=== PATIENT | female | born 1950 | race Caucasian/White ===

== ENCOUNTER → 2016-12-08 | Outpatient (CLI) | payer OTHER ==
[2016-12-08 09:36] LABS: BASO % 0.4 % (0.0-1.0); EOS % 0.2 % (1.0-4.0); HEMATOCRIT 37.4 % (37.0-47.0); HEMOGLOBIN 11.7 g/dl (12.0-16.0); LYMPH # 1.1 10*3/uL (1.3-4.4); LYMPH % 10.9 % (27.0-41.0); MEAN CELL VOLUME 85.8 fl (81.0-99.0); MEAN CORPUSCULAR HGB 26.8 pg (27.0-31.0); MEAN CORPUSCULAR HGB CONC 31.3 g/dl (33.0-37.0); MEAN PLATELET VOLUME 10.3 fl (9.6-12.3); MONO # 0.7 10*3/uL (0.1-1.0); NEUT # 8.3 10*3/uL (2.3-7.9); NEUT % 81.1 % (47.0-73.0); PLATELET COUNT AUTOMATED 118 10*3/uL (130-400); RED BLOOD COUNT 4.36 10*6/uL (4.10-5.10); RED CELL DISTRI WIDTH 17.7 % (0-14.5); WHITE BLOOD COUNT 10.2 10*3/uL (4.8-10.8)
[2016-12-08 10:11] LABS: ALBUMIN 3.1 gm/dl (3.1-4.5); ALKALINE PHOSPHATASE 158 U/L (45-117); BILIRUBIN, DIRECT 0.2 mg/dL (0.0-0.2); BUN 8 mg/dl (7-24); CHLORIDE 109 mmol/L (98-107); CHOLESTEROL 135 mg/dL (<200); CREATININE 0.65 mg/dL (0.55-1.02); HDL CHOLESTEROL 60 mg/dl (40-60); LDL CHOLESTEROL 62 mg/dL (9-159); SGOT/AST 31 IU/L (3-35); SGPT/ALT 25 U/L (12-78); SODIUM 143 mmol/L (136-145); TOTAL PROTEIN 8.5 gm/dL (6.4-8.2); TRIGLYCERIDES 64 mg/dl (<150); VLDL CHOLESTEROL 13 mg/dL (6-40)
== END | disposition home or self-care (01) ==
LOC: LAB 09:04
PROVIDERS: Family Medicine
DX: E78.4 Other hyperlipidemia (principal); R73.01 Impaired fasting glucose; D51.3 Other dietary vitamin B12 deficiency anemia; E55.9 Vitamin D deficiency, unspecified; D69.6 Thrombocytopenia, unspecified

== ENCOUNTER → 2017-08-20 | Outpatient (CLI) | payer OTHER ==
[2017-08-20 13:28] LABS: BUN 8 mg/dl (7-24); CHLORIDE 109 mmol/L (98-107); POTASSIUM 3.3 mmol/L (3.5-5.1); SODIUM 142 mmol/L (136-145)
== END | disposition home or self-care (01) ==
LOC: LAB 12:34
PROVIDERS: Internal Medicine
DX: K74.69 Other cirrhosis of liver (principal)

== ENCOUNTER 2017-12-31 15:45 | Inpatient (IN) | payer OTHER ==
[~2017-12-31] VITALS: Ht 157 cm; Wt 56.3 kg
--- NOTE | ~2017-12-31 | EKG ---
[place], [place] ELECTROCARDIOGRAM REPORT NAME: WING GUNDERSON UNIT #: [id number] ROOM: 407 DOCTOR: IVELISSE DRAFT REPORT BIRTHDATE: [birth year] [facility] Test Date: 2017-12-31 Test Time: 16:22:35 Pat Name: WING GUNDERSON Department: ER Room: [facility] Gender: F Meat Se[employer] Associate: Muriel Goode : 1950 Requested By: AC OMALLEY Order Number: [id number] Reading MD: Anna Jarrett MD Measurements Intervals [place] Rate: 79 P: 57 NM: 177 QRS: 14 QRSD: 77 T: 37 QT: 408 QTc: 468 Interpretive Statements Sinus rhythm Probable left atrial enlargement Electronically Signed On 01-01-2018 12:11:39 PDT by Anna Jarrett MD CM:EKGRPT:ELECTROCARDIOGRAM REPORT 1622 1211 AC CRUZ DRAFT REPORT AC OMALLEY DO
--- NOTE | ~2017-12-31 | CON ---
[place], [place] REPORT OF CONSULTATION NAME: [facility]UNDERSON [facility] [id number] UNIT #: [id number] ROOM: 407 DOCTOR: LAUREN LEWIS MD BIRTHDATE: [birth year] DOS: 01/01/2018 HISTORY OF PRESENT ILLNESS: A 67-year-old patient who presented with hepatic encephalopathy. The patient with a history of DOTSON, history of Crohn's disease years of mesalamine therapy and Humira therapy and perhaps sulfasalazine therapy. The status post multiple times segmental resection of small bowel with Crohn's involvement many years ago. She has had a panel of blood work done. GFR greater than 60. Electrolytes borderline normal, bilirubin 3.9. SGOT, GPT 46 and 34, alkaline phosphatase 150. Lipase 204. C-reactive protein slightly elevated. Lactic acid 1.7. Serum ammonia 56. CT scan of the head was obtained. No acute intracranial finding. CBC differential reveals H and H of 13 and 41 with thrombocytopenia. Ultrasound of the abdomen has been obtained, cirrhotic liver, portal hypertension and cholelithiasis along with ascitic fluid. All has been known. Urine cultures negative. PAST MEDICAL HISTORY: Associated with Crohn's disease, cirrhotic liver, portal hypertension, thrombocytopenia, esophageal varicosities. All is known. PAST SURGICAL HISTORY: Multiple small bowel resections. FAMILY HISTORY: Noncontributory. ALLERGIES: No known medications. MEDICATIONS: List was reviewed. She is on Xifaxan 550 mg b.i.d. She does not like to take lactulose because of the diarrhea; however, was advised to at least consider one dose per day instead of multiple. REVIEW OF SYSTEMS: HEENT: Denies double vision, blurred vision. RESPIRATORY: Denies shortness of breath. CARDIOVASCULAR: Denies chest pain. DIGESTIVE SYSTEM: As outlined above. Cirrhotic liver sequela of the above. PHYSICAL EXAMINATION: GENERAL: Reveals pleasant, fully alert at the present time. HEENT: Head normocephalic, nontraumatic. Eyes: Pupils round, reactive. Sclerae icteric. Mouth and buccal mucosa benign. No aphthae ulceration. NECK: Supple, no thyromegaly, no cervical lymphadenopathy. CHEST: Symmetric anatomy, equal expansion. No wheeze, no rhonchi. HEART: Normal sinus rhythm, no gallop, no murmur. ABDOMEN: Slightly large with some distention secondary most likely to ascites fluid. Bowel sounds present. EXTREMITIES: No cyanosis, no pedal edema. NEUROLOGIC: Fully alert, oriented to time, place, person. Sensory, motor intact. Cranial nerves 2-12 intact. Family present at the bedside and she is participating in history of illness information. IMPRESSION: Cirrhosis, DOTSON etiology and sequela of the above. Thrombocytopenia, ascites, portal hypertension, esophageal varicosities, [place], [place] REPORT OF CONSULTATION NAME: WING GUNDERSON UNIT #: [id number] ROOM: 407 DOCTOR: LAUREN LEWIS MD BIRTHDATE: [birth year] encephalopathy and hyperammonemia. PLAN AND DISCUSSION: The patient already on beta yolanda. We are going to continue with Xifaxan 550 mg b.i.d. and she was convinced at least to have a dose of 30 grams of lactulose daily. Since she was refusing, she was encouraged to take the medication and encephalopathy is stable now and she is having appointment at [facility] to follow up and encouraged to do so. Other adjunctive diagnosis Crohn's disease. She does not have active diarrhea problem. At the present time, she has been on Humira. Humira has been stopped few months ago by her rivet tester because she has had some fibrotic changes and they wanted to make sure it is not secondary to biologic. LAUREN LEWIS MD CM:CONSTR:REPORT OF CONSULTATION 1731 01/20/18 0706 interface
[2017-12-31 15:50] VITALS: BP 171/62
[2017-12-31 16:29] LABS: BILIRUBIN NEGATIVE (NEGATIVE); BLOOD 1+ (NEGATIVE); CLARITY CLEAR (CLEAR); COLOR YELLOW (YELLOW); GLUCOSE NEGATIVE (NEGATIVE); KETONE NEGATIVE (NEGATIVE); LEUKO ESTERASE NEGATIVE (NEGATIVE); NITRITE NEGATIVE (NEGATIVE); SPECIFIC GRAVITY <= 1.005 (1.005-1.030); UROBILINOGEN 0.2 E.U./dl (0.2-1.0)
[2017-12-31 16:49] LABS: BACTERIA TRACE; EPITHELIAL CELLS 35-40; WBC 0-2 wbc/hpf (0-5)
[2017-12-31 17:01] LABS: BASO % 0.4 % (0.0-1.0); EOS # 0.1 10*3/uL (0.0-0.4); EOS % 1.2 % (1.0-4.0); HEMATOCRIT 47.2 % (37.0-47.0); LYMPH % 12.5 % (27.0-41.0); MEAN CELL VOLUME 97.3 fl (81.0-99.0); MEAN CORPUSCULAR HGB CONC 33.9 g/dl (33.0-37.0); MEAN PLATELET VOLUME 11.1 fl (9.6-12.3); MONO # 0.9 10*3/uL (0.1-1.0); MONO % 10.7 % (3.0-9.0); NEUT # 6.2 10*3/uL (2.3-7.9); NEUT % 75.1 % (47.0-73.0); PLATELET COUNT AUTOMATED 77 10*3/uL (130-400); RED BLOOD COUNT 4.85 10*6/uL (4.10-5.10); RED CELL DISTRI WIDTH 15.9 % (0-14.5); WHITE BLOOD COUNT 8.2 10*3/uL (4.8-10.8)
[2017-12-31 17:10] LABS: ACT PARTIAL THROMBO TIME 30.5 SECONDS (20.8-31.5); INTERNATIONAL NORM RATIO 1.6 (2.0-3.5)
[2017-12-31 17:16] LABS: IRON 155 ug/dL (50-170); TOTAL IRON BINDING CAPACITY 416 ug/dl (250-450)
[2017-12-31 17:21] LABS: ALBUMIN 2.9 gm/dl (3.1-4.5); ALKALINE PHOSPHATASE 150 U/L (45-117); BUN 10 mg/dl (7-24); CHLORIDE 109 mmol/L (98-107); CREATININE 0.58 mg/dL (0.55-1.02); LIPASE 204 U/L (73-393); POTASSIUM 3.4 mmol/L (3.5-5.1); SGOT/AST 46 IU/L (3-35); SGPT/ALT 34 U/L (12-78); SODIUM 142 mmol/L (136-145); TOTAL PROTEIN 8.5 gm/dL (6.4-8.2); TROPONIN I 0.021 ng/ml (<0.045)
[2017-12-31 18:12] VITALS: BP 152/64
[2017-12-31 19:02] VITALS: BP 159/65
[2017-12-31 19:22] VITALS: BP 157/68
[2017-12-31 20:04] VITALS: BP 151/63
[2017-12-31 20:30] VITALS: BP 157/56; BP 159/65
[2017-12-31] MEDS ORDERED: FLOVENT HFA12 GM INH (20:50)
[2017-12-31] MEDS ORDERED: XIFAXAN550 MG PO (20:50)
[2017-12-31] MEDS ORDERED: ALDACTONE25 M1 PO (20:51)
[2017-12-31] MEDS ORDERED: NADOLOL20 MG PO (20:51)
[2017-12-31] MEDS ORDERED: VITAMIN D-32000 UNI1 PO (20:52)
[2017-12-31] MEDS ORDERED: PRILOSEC20 M1 PO (20:52)
[2017-12-31] MEDS ORDERED: B121000 MCG/1 IM (20:54)
[2017-12-31] MEDS ORDERED: TRAMADOL HCL50 MG PO (20:54)
[2017-12-31] MEDS ORDERED: CONSTULOSE10 GM/151 PO (20:56)
[2017-12-31] MEDS ORDERED: ARNUITY ELLIP200 MCG INH (20:56)
[2017-12-31] MEDS ORDERED: CONDYLOX3.5 GM T (20:59)
[2017-12-31] MEDS ORDERED: RETIN A T (21:01)
[2018-01-01] VITALS: BP 145/54
[2018-01-01 06:07] LABS: ALBUMIN 2.2 gm/dl (3.1-4.5); ALKALINE PHOSPHATASE 113 U/L (45-117); BILIRUBIN, DIRECT 1.1 mg/dL (0.0-0.2); BUN 10 mg/dl (7-24); CHLORIDE 112 mmol/L (98-107); CHOLESTEROL 90 mg/dL (<200); CREATININE 0.53 mg/dL (0.55-1.02); FREE T4 1.58 ng/dl (0.76-1.46); HDL CHOLESTEROL 38 mg/dl (40-60); LDL CHOLESTEROL 39 mg/dL (9-159); PHOSPHOROUS 4.2 mg/dL (2.5-4.9); POTASSIUM 3.8 mmol/L (3.5-5.1); SGOT/AST 39 IU/L (3-35); SGPT/ALT 28 U/L (12-78); SODIUM 145 mmol/L (136-145); TOTAL PROTEIN 6.7 gm/dL (6.4-8.2); TRIGLYCERIDES 66 mg/dl (<150); VLDL CHOLESTEROL 13 mg/dL (6-40)
[2018-01-01 06:34] LABS: BASO % 0.6 % (0.0-1.0); EOS # 0.2 10*3/uL (0.0-0.4); EOS % 2.4 % (1.0-4.0); HEMATOCRIT 41.6 % (37.0-47.0); LYMPH # 1.4 10*3/uL (1.3-4.4); LYMPH % 20.1 % (27.0-41.0); MEAN CELL VOLUME 97.7 fl (81.0-99.0); MEAN CORPUSCULAR HGB 32.4 pg (27.0-31.0); MEAN CORPUSCULAR HGB CONC 33.2 g/dl (33.0-37.0); MEAN PLATELET VOLUME 11.1 fl (9.6-12.3); MONO # 0.9 10*3/uL (0.1-1.0); MONO % 12.7 % (3.0-9.0); NEUT # 4.5 10*3/uL (2.3-7.9); NEUT % 64.1 % (47.0-73.0); PLATELET COUNT AUTOMATED 67 10*3/uL (130-400); RED BLOOD COUNT 4.26 10*6/uL (4.10-5.10); RED CELL DISTRI WIDTH 15.9 % (0-14.5)
[2018-01-01 06:44] LABS: HEMOGLOBIN 13.8 g/dl (12.0-16.0)
[2018-01-01 08:00] VITALS: BP 140/50
[2018-01-01 12:00] VITALS: BP 135/45
[2018-01-01 16:00] VITALS: BP 130/91
[2018-01-01 20:00] VITALS: BP 136/52
[2018-01-02] VITALS: BP 123/44
[2018-01-02 05:57] LABS: BASO % 0.6 % (0.0-1.0); EOS # 0.2 10*3/uL (0.0-0.4); HEMATOCRIT 38.6 % (37.0-47.0); HEMOGLOBIN 12.7 g/dl (12.0-16.0); LYMPH # 1.3 10*3/uL (1.3-4.4); LYMPH % 19.2 % (27.0-41.0); MEAN CELL VOLUME 98.2 fl (81.0-99.0); MEAN CORPUSCULAR HGB 32.3 pg (27.0-31.0); MEAN CORPUSCULAR HGB CONC 32.9 g/dl (33.0-37.0); MEAN PLATELET VOLUME 11.1 fl (9.6-12.3); MONO % 14.8 % (3.0-9.0); NEUT # 4.2 10*3/uL (2.3-7.9); NEUT % 62.3 % (47.0-73.0); PLATELET COUNT AUTOMATED 60 10*3/uL (130-400); RED BLOOD COUNT 3.93 10*6/uL (4.10-5.10); RED CELL DISTRI WIDTH 15.9 % (0-14.5); WHITE BLOOD COUNT 6.7 10*3/uL (4.8-10.8)
[2018-01-02 06:08] LABS: BUN 9 mg/dl (7-24); CHLORIDE 109 mmol/L (98-107); CREATININE 0.55 mg/dL (0.55-1.02); SODIUM 140 mmol/L (136-145)
[2018-01-02 08:00] VITALS: BP 102/44
[2018-01-02 12:00] VITALS: BP 123/46
[2018-01-02 16:00] VITALS: BP 132/43
[2018-01-02 20:00] VITALS: BP 133/48
[2018-01-03] VITALS: BP 124/50
[2018-01-03 06:45] LABS: BASO # 0.1 10*3/uL (0.0-0.1); BASO % 0.6 % (0.0-1.0); EOS # 0.3 10*3/uL (0.0-0.4); EOS % 3.5 % (1.0-4.0); HEMATOCRIT 38.7 % (37.0-47.0); HEMOGLOBIN 12.8 g/dl (12.0-16.0); LYMPH # 1.3 10*3/uL (1.3-4.4); LYMPH % 16.5 % (27.0-41.0); MEAN CELL VOLUME 98.2 fl (81.0-99.0); MEAN CORPUSCULAR HGB 32.5 pg (27.0-31.0); MEAN CORPUSCULAR HGB CONC 33.1 g/dl (33.0-37.0); MEAN PLATELET VOLUME 11.5 fl (9.6-12.3); MONO # 1.1 10*3/uL (0.1-1.0); MONO % 13.4 % (3.0-9.0); NEUT # 5.3 10*3/uL (2.3-7.9); NEUT % 65.8 % (47.0-73.0); PLATELET COUNT AUTOMATED 61 10*3/uL (130-400); RED BLOOD COUNT 3.94 10*6/uL (4.10-5.10); RED CELL DISTRI WIDTH 15.4 % (0-14.5); WHITE BLOOD COUNT 8.1 10*3/uL (4.8-10.8)
[2018-01-03 07:10] LABS: BUN 8 mg/dl (7-24); CHLORIDE 108 mmol/L (98-107); CREATININE 0.51 mg/dL (0.55-1.02); POTASSIUM 3.8 mmol/L (3.5-5.1); SODIUM 139 mmol/L (136-145)
[2018-01-03 08:00] VITALS: BP 115/45
[2018-01-03] MEDS ORDERED: LACTULOSE20 GM/30 M PO (09:09)
[2018-01-03 12:00] VITALS: BP 132/47
== END 2018-01-03 14:00 | disposition home or self-care (01) | DRG 441 ==
LOC: ED 15:45 → 4E 18:35 → EDHOLD 18:35 → 4E 18:49
PROVIDERS: Emergency Medicine; Internal Medicine; Internal Medicine Nephrology
DX: K72.90 Hepatic failure, unspecified without coma (principal); G93.41 Metabolic encephalopathy; E87.2 Acidosis; R65.10 Systemic inflammatory response syndrome (SIRS) of non-infectious origin without acute organ dysfunction; E44.0 Moderate protein-calorie malnutrition; K50.919 Crohn's disease, unspecified, with unspecified complications; E72.20 Disorder of urea cycle metabolism, unspecified; R18.8 Other ascites; K76.6 Portal hypertension; I85.10 Secondary esophageal varices without bleeding; K80.20 Calculus of gallbladder without cholecystitis without obstruction; K75.81 Nonalcoholic steatohepatitis (NASH); D69.6 Thrombocytopenia, unspecified; E87.6 Hypokalemia; E87.8 Other disorders of electrolyte and fluid balance, not elsewhere classified; K71.7 Toxic liver disease with fibrosis and cirrhosis of liver; D72.810 Lymphocytopenia; R73.9 Hyperglycemia, unspecified; R74.0 Nonspecific elevation of levels of transaminase and lactic acid dehydrogenase [LDH]; E67.8 Other specified hyperalimentation; E88.09 Other disorders of plasma-protein metabolism, not elsewhere classified; E55.9 Vitamin D deficiency, unspecified; Z80.1 Family history of malignant neoplasm of trachea, bronchus and lung; Z79.899 Other long term (current) drug therapy; Z68.22 Body mass index [BMI] 22.0-22.9, adult

== ENCOUNTER → 2018-01-08 | Outpatient (CLI) | payer OTHER ==
[~2018-01-08] MED LIST: ALDACTONE25 M1 PO; ARNUITY ELLIP200 MCG INH; B121000 MCG/1 IM; CONDYLOX3.5 GM T; CONSTULOSE10 GM/151 PO; FLOVENT HFA12 GM INH; LACTULOSE20 GM/30 M PO; NADOLOL20 MG PO; PRILOSEC20 M1 PO; RETIN A T; TRAMADOL HCL50 MG PO; VITAMIN D-32000 UNI1 PO; XIFAXAN550 MG PO
[2018-01-08 12:14] LABS: ALBUMIN 2.6 gm/dl (3.1-4.5); ALKALINE PHOSPHATASE 145 U/L (45-117); BUN 8 mg/dl (7-24); CHLORIDE 107 mmol/L (98-107); CREATININE 0.63 mg/dL (0.55-1.02); GAMMA GLUTAMYL TRANSPEPTIDASE 126 U/L (5-55); POTASSIUM 3.2 mmol/L (3.5-5.1); SGOT/AST 48 IU/L (3-35); SGPT/ALT 36 U/L (12-78); SODIUM 141 mmol/L (136-145); TOTAL PROTEIN 7.2 gm/dL (6.4-8.2)
== END | disposition home or self-care (01) ==
LOC: LAB 11:13
PROVIDERS: Internal Medicine
DX: K74.69 Other cirrhosis of liver (principal); K50.018 Crohn's disease of small intestine with other complication

== ENCOUNTER 2018-07-30 16:31 | Inpatient (IN) | payer OTHER ==
[~2018-07-30] VITALS: Ht 157.5 cm; Wt 57.8 kg
--- NOTE | ~2018-07-30 | CON ---
[place], [place] REPORT OF CONSULTATION NAME: WING GUNDERSON [facility] #: [id number] UNIT #: [id number] ROOM: 421 DOCTOR: ИРИНА BEVERLY MDIVA BIRTHDATE: [birth year] DOS: 08/03/2018 PULMONARY CONSULTATION, EVALUATION AND BEHAVIORIST PHYSICIAN: Hospitalist services. REASON FOR CONSULTATION: To assess the patient for the current acute respiratory failure. HISTORY OF PRESENT ILLNESS: The patient was independently seen and examined with [id number] encounter, history was confirmed. Physical examination performed. The labs was reviewed. Note done by the biomedical engineering professor, was approved. This is a 68-year-old white female patient, complex history, most likely related to the GI tract, the patient has been also under the care of hospitalist service on the date of 07/30/2018. The patient's original symptoms are noted on admission was reported as general weakness and fatigue for this patient. The patient was not noted with any symptoms of coughing, chest pain or hemoptysis. The patient has been noted with hepatic insufficiency for this patient with elevation of ammonia level, metabolic in origin, hyperemia as well treated on medical floor. The patient was noted with normal pulse oxygen saturation, later on developed prior to admission to Intensive Care Unit with severe oxygen desaturation of the patient requiring 100% oxygen supplementation, I am not able to manage. Pulse oxygen saturation normal. The patient was started on the BiPAP, the discussion about the code status has been done between the patient and family member of the patient, final decision essentially was achieved for this patient as DNR comfort care by the patient as a final decision and the patient's no intubation. She was placed on the BiPAP on 70% oxygen and later on switched to the Optiflow oxygen supplementation. The patient was assessed this morning. REVIEW OF SYSTEMS: As done by the biomedical engineering professor, was approved. PAST MEDICAL HISTORY: Noted history of: 1. Crohn's disease, longstanding. 2. Liver cirrhosis, primary biliary cirrhosis, most likely is the reason. Again, I am not sure about the exact diagnosis as the pathological report none available. 3. Esophageal varices. 4. History of interstitial lung disease, the patient stated as well. 5. History of portal hypertension. 6. Protein-calorie malnutrition as well. SOCIAL HISTORY: As stated by the patient. She denies any tobacco, alcohol or illicit drug use. She lives at home. PAST SURGICAL HISTORY: Noted: 1. Partial colectomy, which were done twice in 1976 and 1986. 2. Banding of the esophageal varices. FAMILY HISTORY: The patient's father at the age of 80 years of [place], [place] REPORT OF CONSULTATION [id number] UNIT #: [id number] ROOM: 421 DOCTOR: EDGAR GOMEZ MDM BIRTHDATE: [birth year] complication of lung cancer. Mother at the age of 86 of complication related to diabetes mellitus. HOME MEDICATIONS: Listed as: 1. Xifaxan, which is rifaximin. 2. Nadolol. 3. Vitamin D. 4. Omeprazole. 5. Tramadol. 6. Aldactone. 7. Vitamin B12. 8. Lactulose. 9. Potassium chloride. 10. B complex, folic acid. 11. Flovent inhaler. CURRENT MEDICATIONS: Current medications, which were administered on this hospitalization were noted as the use of: 1. Solu-Medrol 40 mg b.i.d., lactulose 20 g daily. 2. Mucinex 1200 mg p.o. b.i.d. 3. DuoNeb q. 6 hours. 4. Fish oil. 5. Multivitamin. 6. Vitamin D. 7. Omeprazole. 8. Aldactone. 9. Metoprolol tartrate. 10. Rifaximin. 11. IV Zosyn. DRUG ALLERGY HISTORY: The patient was noted as no known drug allergies. PHYSICAL EXAMINATION: GENERAL: This is a 68-year-old white female patient who has been currently comfortably resting, on the bed, using oxygen supplementation Optiflow of oxygen. VITAL SIGNS: Height was 5 feet 2 inches, weight 127 pounds, BMI 23. HEENT: Head was atraumatic. The patient's eyes were noted icterus. NECK: Supple. CARDIOVASCULAR SYSTEM: S1, S2 audible. LUNGS: The patient was noted with severe decreased breaths in the lungs bilaterally. There was no wheezing. Scattered crackles of the lung were present. ABDOMEN: Soft, nontender, bowel sounds present. EXTREMITIES: The patient was noted with mild edema. MUSCULOSKELETAL: Without any acute deformities. CENTRAL NERVOUS SYSTEM: No gross focal neurologic deficit at this time. The patient noted awake and alert and able to understand the questions and answer the questions appropriately. [place], [place] REPORT OF CONSULTATION NAME[facility]UNDERSON [id number] UNIT #: [id number] ROOM: 421 DOCTOR: IVA GOMEZ MD BIRTHDATE: [birth year] LABORATORY DATA: CBC that was done for the patient on the 08/02/2018 as WBC count 9.6, hemoglobin 10.8, platelet count 53,000. CMP that was done on 08/02/2018, BUN 13, creatinine was normal, glucose 110. Albumin 1.9, total bilirubin 3.4. Arterial blood gas that was done yesterday, 100% nonrebreather mask, pH of 7.36, pCO2 of 31, pO2 of 65.5. BMP that was done repeated noted with a BUN of 16, creatinine 1.04, glucose 276. CO2 was 17. Chloride 111. Lactic acid was noted for the patient yesterday at 4.5. The troponin is 0.50. CBC repeated again, WBC count 17.4, hemoglobin 10.6, platelet count 56,000. Second troponin is 0.726. The ammonia level noted less than 10, which are noted significantly with more than 100 on admission. CBC that was done this morning lab, WBC count 12.9, hemoglobin 11.5, hematocrit 36.5, platelet count 46,000. CMP this morning was done as BUN 20, creatinine 1.14. Glucose 169. Albumin is 2.0. Total bilirubin 2.30. CO2 level was noted normal as 25. The radiology data reviewed for this patient systematically. The patient has a chest x-ray that was done on admission on 12/31/2017 were noted essentially negative study. CT scan of the patient's head was reported by the radiologist without any acute abnormality on admission as well on 12/31/2017. Ultrasound of the abdomen completed on 01/01/2018 were noted a small amount of ascites. The patient had another ultrasound, which was done for the patient again was noted cirrhotic liver with a small associated ascites. Sludge and stones noted within the gallbladder, likely reactive with gallbladder wall thickening. Chest x-ray that was done for this patient on the 08/01/2018, portable x-ray was reviewed, the patient is still noted without any acute abnormalities. CTA of the chest that was done on 08/02/2018 was reviewed personally. Parenchymal window for the patient was noted with the diffuse ground glass opacity was noted in the lung for this patient, sparing some of the lung parenchyma. Most of the distribution noted as more central. There were no pleural effusions. IMPRESSION: 1. The patient who has been noted with acute pulmonary edema, most likely cause of current deterioration resulting in acute severe hypoxemic respiratory failure. 2. History of known advanced liver cirrhosis, ascites and esophageal varices. 3. Resolution of metabolic encephalopathy noted from admission and normalization of the ammonia level. 4. The patient with recurrent abdominal ascites noted significantly increased since admission in 2 days. Rapid accumulation also suggested possible consideration of Budd-Chiari syndrome as well in the differential diagnosis. 5. Rule out acute peritonitis of the patient with further assessment because of elevation of the temperature. I doubt if the finding noted in the CT scan is suggestive of acute pneumonia. PLAN OF MANAGEMENT: The patient will be requiring paracentesis for cell count and differential and also to relieve the respiratory distress. Continue oxygen supplementation with the Optiflow used as the BiPAP for the comfort. The patient wanted to do so, which could be beneficial. Diuretic therapy for the patient could be given. Antibiotic was started for Gram-negative coverage related to the abdominal problem. Other therapy, plan and management with additional treatment changes will be made for this patient based on progression of the illness. The patient was also noted mildly abnormal troponin at this [place], [place] REPORT OF CONSULTATION NAME: WING GUNDERSON UNIT #: [id number] ROOM: 421 DOCTOR: IVA GOMEZ MD BIRTHDATE: [birth year] time, most likely due to demand ischemia for this patient more than the acute myocardial infarction. Usual care, other therapy, plan of management with additional treatment changes needs to be done for the patient based on the progression of the illness. Supportive care, plan of therapy and management for the patient as well. Close monitoring of electrolytes for the patient while on the diuretics as well. Overall prognosis of the patient is essentially quite guarded. Thanks for allowing me to participate in the care of this patient. IVA GIFFORD MD CM:CONSTR:REPORT OF CONSULTATION 1827 08/30/18 0842 interface
--- NOTE | ~2018-07-30 | EKG ---
[place], [place] ELECTROCARDIOGRAM REPORT NAME: WING GUNDERSON UNIT #: [id number] ROOM: [facility] DOCTOR: IVELISSE DRAFT REPORT BIRTHDATE: [birth year] [facility] Test Date: 2018-08-02 Test Time: 14:25:20 Pat Name: WING GUNDERSON Department: Room: [facility] Gender: F Senior Vice President: Lorene Phillip : 1950 Requested By: GEOFFREY GARCIA Order Number: [id number] Reading MD: Jasmin Keller Measurements Intervals [place] Rate: 105 P: 47 MA: 166 QRS: 29 QRSD: 72 T: 31 QT: 352 QTc: 466 Interpretive Statements Sinus tachycardia Borderline low voltage, extremity leads Compared to ECG 12/31/2017 16:22:35 Sinus rhythm no longer present Electronically Signed On 08-04-2018 13:33:40 PDT by Jasmin Keller CM:EKGRPT:ELECTROCARDIOGRAM REPORT 1425 1333 GEOFFREY GARCIA EPIPHANY DRAFT REPORT GEOFFREY GARCIA
--- NOTE | ~2018-07-30 | PR ---
[place], [place] PROGRESS NOTE [id number] UNIT #: [id number] ROOM: 421 DOCTOR: LEVI FRANCIS DO BIRTHDATE: [birth year] DOS: 08/13/2018 PULMONARY PROGRESS NOTE INTERVAL HISTORY: The patient is resting in bed comfortably. The patient is still requiring the Optiflow. The patient states that her breathing has not changed since last night. The patient has no other complaints. PHYSICAL EXAMINATION: VITAL SIGNS: Temperature is 97.8 and her pulse rate is 108, respiratory rate is 20, blood pressure is 108/45. The patient is 88% on 60 liters, 100% on Optiflow. HEENT: Normocephalic, atraumatic. Eyes are mildly icteric. NECK: Supple, nontender, trachea midline. CARDIOVASCULAR: S1, S2 audible. LUNGS: Some crackles at the bilateral bases. ABDOMEN: Distended, nontender, positive fluid wave. EXTREMITIES: No clubbing, cyanosis. The patient has bilateral lower extremity edema. NEUROLOGIC: The patient is grossly intact. Cranial nerves 2-12 grossly intact. No focal deficits. LABORATORY DATA: Of note, the patient's INR remains elevated at 7.3 despite not being on anticoagulation. The patient's chemistries: Sodium 139, potassium 3.9, chloride 107, carbon dioxide 20, BUN 45, creatinine 1.38. T-bili is 5 today with AST 43, ALT 26, alk phos 125, albumin is 1.8. ASSESSMENT: 1. Advanced liver cirrhosis. 2. History of ulcerative colitis 3. Jaundice. 4. Leukocytosis. 5. Renal failure. 6. Coagulopathy, likely secondary to liver failure. 7. Hypoxic respiratory failure. PLAN: The patient is on Optiflow to continue to oxygenate above 88%. The patient should be continued on Optiflow at this time. The patient is refusing intubation. The patient's condition remains guarded; however, if the patient's family would still like her to be transferred to tertiary care center such as [facility] for further evaluation, it would be okay as long as the patient will be transferred on either BiPAP or Optiflow. Otherwise, the patient remains guarded. Carlos Francis DO [place], [place] PROGRESS NOTE NAME: JALYN,WING Jesus UNIT #: [id number] ROOM: [facility] DOCTOR: LEVI FRANCIS DO BIRTHDATE: [birth year] IVA GIFFORD MD CM:MU [phone] LEVI FRANCIS DO 08/30/18 0857 interface
--- NOTE | ~2018-07-30 | PR ---
[place], [place] PROGRESS NOTE NAME: WING GUNDERSON [facility] #: [id number] UNIT #: [id number] ROOM: 421 DOCTOR: ИРИНА BEVERLY MD,IVA BIRTHDATE: [birth year] DOS: 08/04/2018 PULOMNARY ADDENDUM NOTE SUBJECTIVE: The patient independently was seen, examined in [id number] encounter, history was confirmed. Labs were reviewed. Medical record of the patient was also assessed. After reviewing the labs, the patient assessment and management today was personally completed. The note done by the medical appliance maker was approved as well. The patient has been noted stability in the respiratory status, reduction in symptoms of shortness of breath. She has been started on Lasix yesterday and was noted effective reduction in the respiratory symptom. Denies symptoms of chest pain, fever or chills this morning of assessment. Denies symptoms of hemoptysis. Denies symptoms of nausea, vomiting, or diarrhea. She underwent paracentesis. No abdominal pain. Denies symptoms of pain of the lower extremities. Remaining systems were reviewed. They were noted all negative. PHYSICAL EXAMINATION: VITAL SIGNS: For the patient, which are recorded shows normal temperature, respiratory rate of 18-24. Heart rate 87-85, blood pressure 120/50-132/51. Intake of 1000 mL, output at 2669 on 1.540 liters. Pulse oxygen saturation on 50% oxygen supplementation, was recorded 99-100% saturation. HEENT: Examination shows head was atraumatic. Mild icterus. NECK: Supple. CARDIOVASCULAR: S1, S2 audible. LUNGS: Noted without any wheezing, occasional crackles. ABDOMEN: Soft. No tenderness. Bowel sounds present. EXTREMITIES: Noted with edema. MUSCULOSKELETAL: Without acute deformities. CENTRAL NERVOUS SYSTEM: Limited, but intact. LABORATORY DATA: CBC; WBC count 21.6, hemoglobin 11.2, platelet count 59,000. Blood culture from the 08/02/2018 showed no bacterial growth. The PT/INR was noted elevated at 3.3. BMP done this morning as glucose 213, BUN 20, creatinine 1.09. Troponin minimally elevated at 0.34. Potassium 3.4. CO2 was 20. Gram stain of the sputum yesterday as many white blood cells, moderate epithelial cells, few budding yeast, normal rosanna preliminary growth noted, and no bacterial growth at this time was noted. Final culture results pending. IMPRESSION: 1. The patient with severe acute hypoxic respiratory failure with acute congestive heart failure, interstitial edema. 2. Advanced cirrhosis of the liver with ascites. 3. Portal hypertension secondary cause as the pulmonary hypertension is also reported and noted with liver cirrhosis as well. 4. History of ulcerative colitis. 5. Leukocytosis, rule out sepsis. 6. Rule out spontaneous bacterial peritonitis. 7. Abnormal coagulation related to liver dysfunction. [place], [place] PROGRESS NOTE NAME: WING GUNDERSON UNIT #: [id number] ROOM: [facility] DOCTOR: ИРИНА BEVERLY MD,IVA BIRTHDATE: [birth year] PLAN OF TREATMENT: No changes in the plan of care at this time, current antibiotic: Monitor respiratory status. Start the patient on Lasix 40 mg b.i.d. yesterday will be continued. Reduction of broad-spectrum antibiotic as soon as the culture results will be available. IVA GIFFORD MD CM:PNTRANS [phone] IVA BEVERLY MD 08/05/18 0248 interface
--- NOTE | ~2018-07-30 | PR ---
[place], [place] PROGRESS NOTE NAME: WING GUNDERSON UNIT #: [id number] ROOM: 421 DOCTOR: QIAN GELLERLEVI BIRTHDATE: [birth year] DOS: 08/05/2018 INTERVAL HISTORY: The patient states that her breathing is better today. The patient has discussed palliative care as described yesterday. The patient is still to decide exactly how she wants to go home. The patient continues on BiPAP as needed. The patient denies any chest pain, fevers or chills. OBJECTIVE: VITAL SIGNS: Temperature is 97.7, pulse 77, respiratory rate 20, blood pressure 90/50, 95% on BiPAP with oxygen FiO2 of 70. HEENT: Normocephalic, atraumatic. Eyes are anicteric. NECK: Supple, nontender, trachea midline. HEART: S1, S2 audible. LUNGS: Crackles at right base, diminished bilaterally. ABDOMEN: Soft, nontender, nondistended. EXTREMITIES: Erythema, edema to bilateral lower extremity without rash today. NEUROLOGIC: Grossly intact. Not confused currently. ASSESSMENT: 1. Acute respiratory failure, hypoxia, likely from pulmonary edema. 2. Hypokalemia. 3. Hepatic encephalopathy. 4. Thrombocytopenia. 5. Severe protein-calorie malnutrition. 6. History of Crohn's disease. 7. Hyperbilirubinemia and transaminitis. 8. Cirrhosis secondary to nonalcoholic steatohepatitis with progressive liver failure at this time. 9. Anasarca. PLAN: At this time, the patient is stable from pulmonary standpoint. The patient's shortness of breath with hypoxia is related to pulmonary edema. Continue Aldactone at the home dose. Continue IV Lasix while the patient is inpatient and consider continuing on Lasix when the patient is discharged. The patient will go for a two-view chest x-ray today to assess any pulmonary fluid. Consider narrowing antibiotics based on cultures and any additional changes based on progression of illness. Carlos Francis DO [place], [place] PROGRESS NOTE NAME: WING GUNDERSON UNIT #: [id number] ROOM: 421 DOCTOR: LEVI FRANCIS DO BIRTHDATE: [birth year] IVA GIFFORD MD CM:PNREESE [phone] LEVI FRANCIS DO 08/05/18 2243 interface
--- NOTE | ~2018-07-30 | PR ---
[place], [place] PROGRESS NOTE NAME: WING GUNDERSON [facility] #: [id number] UNIT #: [id number] ROOM: 421 DOCTOR: ИРИНА BEVERLY MD,IVA BIRTHDATE: [birth year] DOS: 08/05/2018 PULMONARY PROGRESS NOTE The patient is independently seen and examined in gbrf-pj-gyvn encounter. History was confirmed. Physical examination performed. Labs were reviewed. Note done by the medical accountant was approved as well. SUBJECTIVE: The patient has been noted comfortable at this time, resting, using oxygen supplementation, Optiflow oxygen. She has not been reported with any symptoms of chest pain or any cough. Shortness of breath is still reported and she is requiring a significant amount of oxygen supplementation. The patient denies symptoms of nausea, vomiting, diarrhea, or any abdominal pain. Denies symptoms of hematemesis or melena. Lasix was continued 40 mg daily and negative fluid balance of about 1100 mL noted in the last 24 hours. Remaining systems were reviewed, noted all negative. OBJECTIVE: VITAL SIGNS: The patient remains afebrile, respiratory rate 16, heart rate 81, blood pressure 114/44. Pulse oxygen saturation recorded as 95% saturation on BiPAP and Optiflow oxygen supplementation. HEENT: Examination shows head is atraumatic. Eyes nonicterus. NECK: Supple. CARDIOVASCULAR: S1 and S2 audible. LUNGS: Noted with expiratory crackles, without any wheezing. ABDOMEN: Soft, nontender. Bowel sounds present. EXTREMITIES: Without any acute edema. MUSCULOSKELETAL: Without any acute deformities. CENTRAL NERVOUS SYSTEM: Intact. LABORATORY DATA: PT/INR that was noted this morning was still noted in the therapeutic range at 2.5. BMP this morning - BUN 19, creatinine normal, glucose 155, chloride 114. Culture of the sputum was reported as heavy growth of yeast, normal rosanna. DIAGNOSTIC DATA: Chest x-ray ordered this morning was noted worsening of previously noted interstitial infiltration. IMPRESSION: 1. The patient with acute congestive heart failure. 2. Bilateral pleural fluid with persistent acute respiratory failure. 3. History of advanced liver cirrhosis. Possible pneumonia cannot be completely excluded. 4. Ascites. PLAN OF MANAGEMENT: Continuation of current plan of management. From a pulmonary standpoint, paracentesis when possible and sampling of the fluid. Lasix to be continued at the present time at the same dose. The patient is also receiving Solu-Medrol which could be discontinued. Other therapy plan of management changes will be made based on progression of the illness. [place], [place] PROGRESS NOTE NAME: WING GUNDERSON UNIT #: [id number] ROOM: [facility] DOCTOR: ИРИНА BEVERLY MD,IVA BIRTHDATE: [birth year] IVA GIFFORD MD CM:PNTRANS [phone] IVA BEVERLY MD 08/30/18 0843 interface
--- NOTE | ~2018-07-30 | PR ---
[place], [place] PROGRESS NOTE [facility] [id number] UNIT #: [id number] ROOM: 421 DOCTOR: QIAN GELLERAMYJUAN FRANCISCO BIRTHDATE: [birth year] DOS: 08/12/2018 PULMONARY PROGRESS NOTE INTERVAL HISTORY: The patient was resting in bed. The patient is on Optiflow. The patient states that she is still short of breath with any activity. The patient states that she has not used the BiPAP overnight. The patient has no other complaints. OBJECTIVE: VITAL SIGNS: Temperature 98.4, pulse 69, respiratory rate 20, blood pressure is 108/38. The patient is 94% on 100% and 60 liters of Optiflow. HEENT: Normocephalic, atraumatic. Eyes are icteric. NECK: Supple, nontender, trachea midline. CARDIOVASCULAR: S1, S2 audible. LUNGS: Some crackles at the bilateral bases. ABDOMEN: Distended, nontender. Positive fluid wave. EXTREMITIES: No clubbing, cyanosis. The patient has trace bilateral lower extremity edema. NEUROLOGIC: The patient is grossly intact. Cranial nerves 2-12 grossly intact. No focal deficits. LABORATORY DATA: The patient's white count today is 19.5, hemoglobin is 11.4, hematocrit is 34.0, platelet count is 86. Chemistries: Sodium 140, potassium 3.8, chloride 108, carbon dioxide 22, BUN 40, creatinine 1.51, calcium 7.6. Coagulation studies again show an elevated INR of 7.4. ASSESSMENT: 1. Advanced liver cirrhosis. 2. History of ulcerative colitis. 3. Jaundice. 4. Leukocytosis. 5. Renal failure. 6. Coagulopathy, most likely secondary to liver dysfunction. 7. Hypoxic respiratory failure. PLAN: The patient is stable at this time on the Optiflow. The patient should be continued on Optiflow as it is the best ventilating strategy for hypoxic respiratory failure at this time. We agree if the patient would like further treatment, she would need to go to a tertiary care center such as the [facility]. The patient's condition remains guarded. Continue current therapies and changes will be based on progression of illness. Carlos Francis DO [place], [place] PROGRESS NOTE NAME: WING GUNDERSON UNIT #: [id number] ROOM: 421 DOCTOR: LEVI FRANCIS DO BIRTHDATE: [birth year] IVA GIFFORD MD CM:PNREESE [phone] LEVI FRANCIS DO 08/12/181911 interface
--- NOTE | ~2018-07-30 | PR ---
[place], [place] PROGRESS NOTE NAME: WING GUNDERSON UNIT #: [id number] ROOM: 421 DOCTOR: LEVI FRANCIS DO BIRTHDATE: [birth year] DOS: 08/10/2018 PULMONARY PROGRESS NOTE SUBJECTIVE: The patient is comfortable, resting in bed. However, the patient still required high flow oxygen with Optiflow. The patient is chronically ill, but not in any acute distress. PHYSICAL EXAMINATION: VITAL SIGNS: The patient's temperature is 99.3, pulse 88, respirations 16, blood pressure 105/40. The patient is 91% on high flow oxygen with the Optiflow. HEENT: Eyes mildly icteric, normocephalic, atraumatic. NECK: Supple, nontender. CARDIOVASCULAR: S1, S2 audible. LUNGS: Decreased breath sounds bilaterally with scattered crackles. ABDOMEN: Bowel sounds present. No tenderness. Positive fluid wave. EXTREMITIES: No acute changes. LABORATORY DATA: Of note, the patient's INR has increased to 5.4 indicating potentially worse liver status at this time. Kidneys have shown increase in creatinine to 1.34. Also potentially showing the patient is going into hepatorenal syndrome. ASSESSMENT: 1. The patient's terminal status is advanced liver cirrhosis at this time with potential of hepatocardio, hepatorenal, hepatopulmonary syndromes all the same time. 2. Interstitial edema. 3. Ascites. 4. Hypoxic respiratory failure. PLAN OF THERAPY: No change in pulmonary care at this time. The patient is to strongly be considered for hospice with the light of the new laboratory data from today. The patient seems to be going into multisystem organ failure. Continue the use of Optiflow. Hospice would be the best choice for this patient at this time as she has multiple organ systems failing and is unable to be liberated from the Optiflow or BiPAP. The patient's status remains guarded. Any other changes will be based on progression of illness. Carlos Francis DO [place], [place] PROGRESS NOTE NAME: WING GUNDERSON UNIT #: [id number] ROOM: 421 DOCTOR: LEVI FRANCIS DO BIRTHDATE: [birth year] IVA GIFFORD MD CM:MU [phone] LEVI FRANCIS DO 08/30/18 0847 interface
--- NOTE | ~2018-07-30 | PR ---
[place], [place] PROGRESS NOTE NAME: WING GUNDERSON UNIT #: [id number] ROOM: 421 DOCTOR: IVA GOMEZ MD BIRTHDATE: [birth year] DOS: 08/07/2018 PULMONARY PROGRESS NOTE SUBJECTIVE: The patient noted comfortable at this time, resting in the bed this morning of assessment, underwent paracentesis yesterday. She has not been noted any symptoms of fever or chills. Using Optiflow of oxygen supplementation with oxygen supplementation recorded as 55% of that. The patient has used the BiPAP at times as well. OBJECTIVE: VITAL SIGNS: For the patient, which are recorded showed the temperature noted as normal, respiratory rate of 16, heart rate of 108, blood pressure 112/32. The pulse oxygen saturation as 93% saturation. HEENT: Examination shows head was atraumatic. Eye nonicterus. NECK: Supple. CARDIOVASCULAR: S1, S2 is audible. LUNGS: The patient was noted with scattered crackles of the lungs. ABDOMEN: Soft. Bowel sounds present. EXTREMITIES: No new change. LABORATORY DATA: The CBC that was done on 08/07/2018, WBC count 12.9, hemoglobin 11.7, platelet count of 39,000. CMP of the patient this morning, normal BUN and creatinine. IMPRESSION: 1. Acute respiratory failure with hypoxia with massive ascites, status post paracentesis, and history of Crohn's disease, which is noted advanced. 2. The patient with acute congestive heart failure as well. PLAN OF THERAPY: No changes in the plan of care at this time needs to be done as all the therapy, which is currently ongoing will be continued. Other therapy, plan of management and management changes will be ordered based on the progression of the illness. [place], [place] PROGRESS NOTE NAME: WING GUNDERSON UNIT #: [id number] ROOM: 421 DOCTOR: IVA GOMEZ MD BIRTHDATE: [birth year] IVA GIFFORD MD CM:PNTRANS [phone] IVA BEVERLY MD 08/08/18 0105 interface
--- NOTE | ~2018-07-30 | PR ---
[place], [place] PROGRESS NOTE NAME: WING GUNDERSON UNIT #: [id number] ROOM: 421 DOCTOR: IVA GOMEZ MD BIRTHDATE: [birth year] DOS: 08/06/2018 PULMONARY PROGRESS NOTE SUBJECTIVE: The patient was independently seen and examined in megu-[id number] encounter, history was confirmed. Physical examination performed. Labs were reviewed. The assessment and management of the patient's today's visit was personally completed. Note done by the medical surgery nurse was approved as well. The patient continued to require BiPAP, intermittent use of Optiflow for oxygen supplementation, respiratory failure management. She has been noted comfortable at this time using the BiPAP this morning. The oxygen on the BiPAP noted 60%. OBJECTIVE: VITAL SIGNS: For the patient, which are recorded when the patient was resting comfortably with normal temperature, respiratory rate 20, heart rate of 81, blood pressure 129/55. The pulse oxygen saturation recorded as 98% saturation on 60%, high BiPAP settings of 16/8. HEENT: Noted mild icterus. No other acute abnormalities. NECK: Supple. CARDIOVASCULAR SYSTEM: S1, S2 audible. LUNGS: The patient without any wheezing. Scattered crackles. ABDOMEN: The patient with bowel sounds present, nontender. EXTREMITIES: No new changes. LABORATORY DATA: INR today noted 3.1, which is in therapeutic range. BMP noted as normal BUN and creatinine. CBC: WBC count 13.3, hemoglobin 10.8, hematocrit 49. IMPRESSION: 1. The patient with acute congestive heart failure with interstitial edema and respiratory failure. 2. Advanced liver cirrhosis. 3. History of Crohn's disease. 4. Abnormal coagulopathy related to underlying liver dysfunction. PLAN OF MANAGEMENT: No changes in the plan of care at this time. Continue the patient's current plan of management. Intermittent with oxygen supplementation with use of the BiPAP at times. Overall, prognosis of the patient remains the same. [place], [place] PROGRESS NOTE NAME: WING GUNDERSON UNIT #: [id number] ROOM: 421 DOCTOR: IVA GOMEZ MD BIRTHDATE: [birth year] IVA GIFFORD MD CM:PNTRANS [phone] IVA BEVERLY MD 08/07/18 0352 interface
--- NOTE | ~2018-07-30 | PR ---
[place], [place] PROGRESS NOTE [facility] [id number] UNIT #: [id number] ROOM: 421 DOCTOR: ИРИНА BEVERLY MD,IVA BIRTHDATE: [birth year] DOS: 08/14/2018 PULMONARY PROGRESS NOTE SUBJECTIVE: The patient noted comfortable at this time, resting in the bed. Continues to get the oxygen supplementation with Optiflow, uses a BiPAP intermittent use. Essentially remains the same with physical assessment. Denies any chest pain. Cough has been noted intermittently without any sputum expectoration. OBJECTIVE: VITAL SIGNS: For the patient which were recorded shows normal temperature, respiratory rate of 16, heart rate 111, blood pressure 103/48. The pulse oxygen saturation has 90% with 60 liters flow of oxygen supplementation with Optiflow. HEENT: Mild icterus. Head was atraumatic. CARDIOVASCULAR: S1, S2 is audible. LUNGS: The patient was noted without any wheezing or crackles. The lung remains unchanged. ABDOMEN: Soft, nontender. Bowel sounds present. EXTREMITIES: No acute change. IMPRESSION: Stable respiratory status noted at the present time with acute hypoxic respiratory failure, pulmonary infiltration with edema, and cirrhosis of the liver. PLAN OF TREATMENT: No changes in the plan from the pulmonary standpoint, continue oxygen supplementation at the present time. Plan was to transfer the patient to the [facility] at this time with pending bed. The patient's overall prognosis remains extremely poor. Continue current therapy, plan and management as previously. IVA GIFFORD MD CM:PNTRANS [phone] IVA BEVERLY MD 08/14/18 1720 interface
--- NOTE | ~2018-07-30 | PR ---
[place], [place] PROGRESS NOTE NAME: WING GUNDERSON UNIT #: [id number] ROOM: 421 DOCTOR: IVA GOMEZ MD BIRTHDATE: [birth year] DOS: 08/11/2018 PULMONARY PROGRESS NOTE SUBJECTIVE: The patient was independently seen and examined with umgu-ya-[id number] encounter. History was confirmed. Physical examination was performed. Labs were reviewed. Assessment and management today was personally completed. Note done by the medical receptionist biller was approved. The patient has been noted comfortable at this time, resting on the bed this morning of assessment. She has not been noted with any ongoing new acute complaints. She still requires significant oxygen supplementation with BiPAP use and also use of Optiflow of oxygen intermittently. OBJECTIVE: VITAL SIGNS: This morning, the patient was lying in the bed with normal temperature, respiratory rate 22, heart rate 79, blood pressure 103/30. Pulse oxygen saturation was recorded as 91% saturation on BiPAP. HEENT AND NECK: Remains unchanged from previous with mild icterus and loss of muscles of mastication. CARDIOVASCULAR: S1 and S2 audible. LUNGS: The patient was noted with decreased breath sounds and crackles in the lungs. ABDOMEN: Soft, nontender. Bowel sounds present. EXTREMITIES: No acute change. LABORATORY DATA: CBC today, WBC count 24.8, hemoglobin 11.8, platelet count was 88,000. PT/INR was noted as INR 5.5. CMP, BUN 39, creatinine 1.53. IMPRESSION: 1. The patient with liver cirrhosis, which was known with history of ulcerative colitis. 2. The patient with icterus as well. 3. Leukocytosis as well as elevation of BUN and creatinine. 4. Coagulopathy, likely secondary to liver dysfunction. PLAN OF TREATMENT: We will defer medical management of ongoing multiple problems including severe acute hypoxemic respiratory failure to [facility]. The patient has been normally managed at [facility] for underlying liver disease. In the meantime, continue the current plan of management until transferring the patient with BiPAP and Optiflow of oxygen and other therapies. [place], [place] PROGRESS NOTE NAME: WING GUNDERSON UNIT #: [id number] ROOM: 421 DOCTOR: IVA GOMEZ MD BIRTHDATE: [birth year] IVA GIFFORD MD CM:PNTRANS [phone] IVA BEVERLY MD 08/12/18 0457 interface
--- NOTE | ~2018-07-30 | PR ---
[place], [place] PROGRESS NOTE NAME: WING GUNDERSON UNIT #: [id number] ROOM: 421 DOCTOR: IVA GOMEZ MD BIRTHDATE: [birth year] DOS: 08/09/2018 PULMONARY PROGRESS NOTE The patient was independently seen and examined in [id number]-ln-[id number] encounter, history was confirmed. Physical examination was performed. Labs were personally reviewed. Assessment and management of today's visit was personally completed. Note done by the medical dosimetrist was approved. SUBJECTIVE: The patient was resting comfortably in the bed; however, required continuous flow oxygen supplementation because of hypoxia appeared to be otherwise ill chronically, but not showing any distress this morning of assessment. PHYSICAL EXAMINATION: GENERAL: The patient was noted comfortable at this time on the bed. VITAL SIGNS: For the patient, which have been recorded shows a normal temperature, respirations 16, heart rate 86, blood pressure 130/42. Pulse oxygen saturation recorded as 92% saturation with Optiflow of oxygen. HEENT: Mild icterus. NECK: Supple. CARDIOVASCULAR SYSTEM: S1, S2 audible. LUNGS: Decreased breath sounds noted in the lungs bilaterally with scattered crackles. ABDOMEN: Bowel sounds present. No tenderness. EXTREMITIES: No new change. IMPRESSION: 1. The patient with terminal status at this time with advanced liver cirrhosis with acute congestive heart failure with severe hypoxemia. 2. Interstitial edema as well. PLAN OF THERAPY: No changes in the plan of care at this time will be recommended. Consider hospitalist service for assessment, the patient agreed. Otherwise, continue current plan of management with the DNR, use of the Optiflow and BiPAP intermittently. [place], [place] PROGRESS NOTE NAME: WING GUNDERSON UNIT #: [id number] ROOM: 421 DOCTOR: IVA GOMEZ MD BIRTHDATE: [birth year] IVA GIFFORD MD CM:PNTRANS [phone] IVA BEVERLY MD 08/10/18 0316 interface
--- NOTE | ~2018-07-30 | PR ---
[place], [place] PROGRESS NOTE NAME: WING GUNDERSON UNIT #: [id number] ROOM: 421 DOCTOR: LEVI FRANCIS DO BIRTHDATE: [birth year] DOS: 08/06/2018 PULMONARY PROGRESS NOTE SUBJECTIVE: The patient is resting comfortably in bed, using BiPAP at this time. The patient states that she gets short of breath when she takes the BiPAP off. The patient is requiring significant amount of oxygen supplementation. The patient denies nausea, vomiting, diarrhea or abdominal pain. The patient states that she has rectal pain secondary to hemorrhoids. The patient has no other compliant. OBJECTIVE: VITAL SIGNS: The patient's temperature is 98.3, pulse is 90, respirations 20, blood pressure 129/55. The patient is 99% on 8 liters. HEENT: Normocephalic, atraumatic. Eyes are icteric. NECK: Supple, nontender, trachea midline. CARDIOVASCULAR: S1, S2 audible. LUNGS: Expiratory crackles without wheezing or rhonchi. ABDOMEN: Soft, nontender. Bowel sounds are present, distended. EXTREMITIES: Without any acute edema. MUSCULOSKELETAL: Without any acute deformities. CENTRAL NERVOUS SYSTEM: No focal neurologic deficits. Cranial nerves 2-12 grossly intact. IMPRESSION: 1. Acute congestive heart failure. 2. Bilateral pleural fluid with acute respiratory failure. 3. History of advanced liver cirrhosis. 4. Pneumonia cannot be completely ruled out. 5. Ascites. PLAN: Continue current plan from pulmonary standpoint. Paracentesis with sampling of fluid would most likely benefit the patient. The patient will most likely breathe easier. Continue Lasix at the same dose. The patient's Solu-Medrol could be decreased. Any other therapy will be based on progression of illness. Carlos Francis DO [place], [place] PROGRESS NOTE NAME: WING GUNDERSON UNIT #: [id number] ROOM: 421 DOCTOR: LEVI FRANCIS DO BIRTHDATE: [birth year] IVA GIFFORD MD CM:PNREESE [phone] LEVI FRANCIS 08/30/18 0845 interface
--- NOTE | ~2018-07-30 | PR ---
[place], [place] PROGRESS NOTE NAME: WING GUNDERSON UNIT #: [id number] ROOM: 421 DOCTOR: IVA GOMEZ MD BIRTHDATE: [birth year] DOS: 08/10/2018 PULMONARY PROGRESS NOTE SUBJECTIVE: The patient was noted comfortable this morning, was independently seen and examined in [id number] encounter, history was confirmed. Physical examination was performed. Labs were reviewed. Note done by the medical legal investigator for today's visit was approved as well. Assessment and management today was personally completed. She appeared to be comfortable at this time, but still requiring the use of Optiflow for oxygen supplementation because of hypoxia, noted mild hypotension intermittently. Has not been reporting any symptoms of coughing or chest pain. Shortness breath was still reported. OBJECTIVE: GENERAL: This morning, lying in the bed, comfortable without any distress. VITAL SIGNS: Normal temperature, respiratory rate 16, heart rate 84, blood pressure 107/40. Intake for the patient 980 mL, output 401 mL. Pulse ox saturation on Optiflow of oxygen supplementation 50%, 90% saturation recorded. HEENT: Mild icterus. Loss of muscle mastication. NECK: Supple. CARDIOVASCULAR: S1, S2 audible. LUNGS: The patient was noted without any wheezing or crackles this morning. Breaths are noted mildly decreased in the lungs bilaterally. ABDOMEN: Soft, nontender. EXTREMITIES: No new change. LABORATORY DATA: The patient's INR noted at 5.4 this morning. The BMP, normal BUN and creatinine mildly elevated at 1.34. CBC was noted, WBC count 17.7. Hemoglobin 11.3. Platelet count 84,000. IMPRESSION: Stable respiratory status. The patient with acute respiratory failure with gradual reduce oxygen requirement with interstitial edema, advance of liver cirrhosis as well. PLAN OF MANAGEMENT: No changes in the plan of management at this time. Continuation of current therapy as in progress. Other usual plan of treatment has already been continued. Overall, prognosis remains poor. [place], [place] PROGRESS NOTE NAME: WING GUNDERSON UNIT #: [id number] ROOM: 421 DOCTOR: IVA GOMEZ MD BIRTHDATE: [birth year] IVA GIFFORD MD CM:PNTRANS [phone] IVA BEVERLY MD 08/30/18 0848 interface
--- NOTE | ~2018-07-30 | PR ---
[place], [place] PROGRESS NOTE [id number] UN[facility] #: [id number] ROOM: 421 DOCTOR: LEVI FRANCIS DO BIRTHDATE: [birth year] DOS: 08/11/2018 PULMONARY PROGRESS NOTE INTERVAL HISTORY: The patient is resting comfortably in bed. The patient is still requiring high flow oxygen with the Optiflow. The patient is chronically ill, but not in any acute distress at this time. PHYSICAL EXAMINATION: VITAL SIGNS: The patient's temperature is 97.6, pulse 79, respiratory rate is 22, blood pressure 103/34, patient is 89% on BiPAP with FiO2 of 80%. HEENT: Normocephalic, atraumatic. Eyes are mildly icteric. NECK: Supple, nontender, trachea midline. CARDIOVASCULAR: S1, S2 audible. LUNGS: Decreased breath sounds bilaterally, scattered crackles. ABDOMEN: Bowel sounds present. No acute tenderness. Positive fluid wave. EXTREMITIES: No acute changes. NEUROLOGIC: Grossly intact. LABORATORY DATA: Of note, the patient's INR remains elevated today at 5.5. CBC shows a white count of 24.8, hemoglobin 11.8, hematocrit 34.0, platelet count 88. Chemistries: Sodium is 136, potassium is 6, chloride is 106, carbon dioxide 20, BUN 39, creatinine 1.53, calcium 7.4, total bilirubin 13, AST 34, ALT 19, alkaline phosphatase 118, total protein 5.4, albumin 1.7. ASSESSMENT: 1. At this time the patient is showing signs of potential hepatorenal, hepatocardio and hepatopulmonary syndromes. 2. Interstitial edema. 3. Ascites. 4. Hypoxic respiratory failure. PLAN OF THERAPY: No changes in pulmonary care at this time. The patient is to be strongly considered for hospice care with the light of data from the last 2 days. The patient continues to have worsening renal function and seems to be going into multisystem organ failure. However, if the patient's family would like to pursue additional Hepatology treatment, considered to be transferred to a larger center would be reasonable. The patient should remain on Optiflow or BiPAP. The patient's status remains guarded. Any other changes will be based on progression of illness. Carlos Francis DO [place], [place] PROGRESS NOTE NAME: WING GUNDERSON UNIT #: [id number] ROOM: [facility] DOCTOR: LEVI FRANCIS DO BIRTHDATE: [birth year] IVA GIFFORD MD CM:PNTRANS [phone] LEVI FRANCIS DO 08/30/18 0852 interface
--- NOTE | ~2018-07-30 | EKG ---
[place], [place] ELECTROCARDIOGRAM REPORT NAME: WING GUNDERSON UNIT #: [id number] ROOM: [facility] DOCTOR: IVELISSE DRAFT REPORT BIRTHDATE: [birth year] [facility] Test Date: 2018-07-30 Test Time: 21:58:21 Pat Name: WING GUNDERSON Department: Room: [facility] Gender: F Storyboard Artist: Kb Munoz : 1950 Requested By: CHELSIE COELLO Order Number: [id number] Reading MD: Jasmin Keller Measurements Intervals [place] Rate: 109 P: 54 SC: 148 QRS: 7 QRSD: 62 T: 77 QT: 313 QTc: 422 Interpretive Statements Sinus tachycardia Abnormal R-wave progression, early transition Compared to ECG 12/31/2017 16:22:35 Sinus rhythm no longer present Electronically Signed On 08-04-2018 12:55:11 PDT by Jasmin Keller CM:EKGRPT:ELECTROCARDIOGRAM REPORT [id number] CHELSIE CRUZ DRAFT REPORT CHELSIE COELLO DO
--- NOTE | ~2018-07-30 | PR ---
[place], [place] PROGRESS NOTE NAME: WING GUNDERSON [facility]: [id number] UNIT #: [id number] ROOM: 421 DOCTOR: ИРИНА BEVERLY MD,IVA BIRTHDATE: [birth year] DOS: 08/12/2018 PULMONARY PROGRESS NOTE SUBJECTIVE: The patient was independently seen and examined in [id number] encounter, history was confirmed. Physical examination performed. The labs were reviewed. Note done by the medical transcription was approved. Assessment and management of today's visit was personally completed. The patient has been currently comfortably lying on the bed, eating her breakfast. She has been noted on Optiflow of oxygen supplementation up to 100% oxygen use. The BiPAP had been used previously. PHYSICAL EXAMINATION: VITAL SIGNS: Normal temperature, respiratory rate of 20, heart rate of 69, blood pressure 108/38. Pulse oxygen saturation was recorded as 94% saturation and 100% on oxygen. HEENT: Shows head was atraumatic. Eyes nonicterus. NECK: Supple. CARDIOVASCULAR SYSTEM: S1, S2 is audible. LUNGS: The patient was noted with crackles of the lungs. ABDOMEN: Noted with moderate ascites. Bowel sounds present. EXTREMITIES: No acute change. IMPRESSION: Stable respiratory status. The patient was noted with ongoing severe acute hypoxemic respiratory failure, multifactorial, congestive heart failure, liver cirrhosis and ascites. PLAN OF MANAGEMENT: Continuation of current plan of care as in progress without any changes this morning. The patient is currently still awaiting for transfer to the [facility] upon availability of the bed. IVA GIFFORD MD CM:PNTRANS [id number] IVA BEVERLY MD 08/12/18 2315 interface
--- NOTE | ~2018-07-30 | PR ---
[place], [place] PROGRESS NOTE NAME: WING GUNDERSON UNIT #: [id number] ROOM: 421 DOCTOR: IVA GOMEZ MD BIRTHDATE: [birth year] DOS: 08/13/2018 PULMONARY PROGRESS NOTE SUBJECTIVE: The patient independently seen and examined in xitd-vz-yawc encounter, history was confirmed. Physical examination performed. Labs were reviewed. Assessment and management today was personally completed. Note done by the mobile paramedical examiner was approved. The patient has been lying in the bed, using Optiflow of oxygen supplementation, appeared to be very ill looking. She was still awaiting for transfer to [facility]. She has not been noted any spontaneous bleeding. There were no symptoms of chest pain reported by the patient's. Cough and shortness breath noted at times. OBJECTIVE: VITAL SIGNS: Normal temperature, respiratory rate 20, heart rate 104, blood pressure of 110/38. Pulse oxygen saturation recorded as 92-87% saturation of Optiflow of oxygen supplementation. HEENT: Examination shows head was atraumatic. Eyes mildly icterus. NECK: Supple. CARDIOVASCULAR: S1, S2 audible. LUNGS: The patient was noted with crackles noted in mid and lower portions bilaterally. There was no wheezing heard. ABDOMEN: Noted with ascites. EXTREMITIES: The patient without any new changes. IMPRESSION: 1. The patient had advanced liver disease noted progressive increased coagulopathy. PT/INR today was measured as 7.3. 2. History of ulcerative colitis and liver cirrhosis. 3. Severe acute hypoxic respiratory failure, multifactorial, remains the same. PLAN OF TREATMENT: No changes in the plan of care at this time. Continue the patient's current therapy as in progress. Other additional treatment changes will be made based on progression of the illness. [place], [place] PROGRESS NOTE NAME: WING GUNDERSON UNIT #: [id number] ROOM: 421 DOCTOR: IVA GOMEZ MD BIRTHDATE: [birth year] IVA GIFFORD MD CM:PNTRANS [id number] IVA BEVERLY MD 08/13/18 1506 interface
--- NOTE | ~2018-07-30 | CON ---
[place], [place] REPORT OF CONSULTATION NAME: WING GUNDERSON [facility] #: [id number] UNIT #: [id number] ROOM: [facility] DOCTOR: LEVI FRANCIS DO BIRTHDATE: [birth year] DOS: 08/03/2018 PULMONARY CONSULTATION NOTE CONSULTATION REQUESTED BY: Hospitalist service. REASON FOR CONSULTATION: Acute respiratory failure and pneumonia. HISTORY OF PRESENT ILLNESS: This is a 68-year-old female with history of cirrhosis, Crohn's disease and interstitial lung disease, who presented from [facility] with abnormal labs. She was hypokalemic and a petechial rash to her lower extremities. 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 She follows with a GI manifest/order organizer print orders at the [facility]. The patient occasionally has paracenteses. The patient was admitted for multiple lab abnormalities. The patient became acutely short of breath on the . She was tachycardic and hypoxic and moved to the ICU. At this point, Pulmonology was consulted. CTA showed no evidence of PE; however, it showed diffuse ground glass opacities throughout both lung lopez. The patient was diuresed at that time. The patient states that she feels much better this morning. The patient states that her breathing, she feels like is about baseline. The patient decided to become a DNR comfort care and would like no invasive or lifesaving measures taken. MEDICAL HISTORY: The patient has past medical problems of: 1. Cirrhosis. 2. Crohn's. 3. Generalized weakness. 4. Esophageal varices. 5. Interstitial lung disease. 6. Vitamin D deficiency. PAST SURGICAL HISTORY: 1. Partial colectomy. 2. History of surgical treatment for her esophageal varices. SOCIAL HISTORY: The patient does not drink alcohol, use illicit drugs or smoke tobacco. FAMILY HISTORY: The patient's father at the age of 80 from lung cancer. The mother is 86 years old and in good health. ALLERGIES: The patient has no known drug allergies. HOME MEDICATIONS: The patient is on B vitamin and C vitamin complex. The patient takes vitamin D and lactulose 20 mg per day, Nadolol 20 mg daily, omeprazole 20 mg daily, potassium 20 mEq b.i.d., rifaximin 550 mg b.i.d., spironolactone 25 mg b.i.d., tramadol 1 tab q.i.d. REVIEW OF SYSTEMS: GENERAL: The patient denies fevers or chills. [place], [place] REPORT OF CONSULTATION NAME: WING GUNDERSON UNIT #: [id number] ROOM: [facility] DOCTOR: LEVI FRANCIS DO BIRTHDATE: [birth year] HEENT: The patient denies double vision, ear pain, blurry vision or dysphagia. CARDIOVASCULAR: The patient denies chest pain, palpitations, lower extremity edema, or diaphoresis. RESPIRATORY: The patient denies shortness of breath on exertion or hemoptysis. ABDOMEN: The patient reports loose stools, but denies abdominal pain. The patient states she feels distended. GENITOURINARY: The patient denies dysuria or hematuria. NEUROLOGIC: The patient denies lightheadedness, dizziness or confusion. SKIN: The patient reports she has got rashes on her lower extremities. PHYSICAL EXAMINATION: VITAL SIGNS: The patient has temperature 96.9, pulse 74, respiratory rate 22, blood pressure 92/52, patient is 98% on Optiflow machine at 70%. HEENT: Normocephalic, atraumatic. Eyes are icteric. NECK: Supple, nontender, trachea midline. HEART: S1, S2 audible. LUNGS: Crackles at right base, diminished bilaterally. ABDOMEN: Soft, nontender, distended abdomen. EXTREMITIES: Erythema and edema to bilateral lower extremities with diffuse petechial rash. NEUROLOGIC: Grossly intact, not confused today. LABORATORY DATA: Labs today show white count of 12.9, hemoglobin 11.9, hematocrit 36.5, platelet count of 46. Chemistry shows sodium 143, potassium 4, chloride 110, carbon dioxide 25, BUN 20, creatinine 1.14, calcium 8, bilirubin 2.3, AST 60, ALT 20, alkaline phosphatase 97. Ammonia is less than 10, total protein 5.7, albumin 2.0. CTA that was performed on 08/02/2018 of the chest showed no pulmonary embolism with diffuse ground glass opacities throughout both lungs, nonspecific finding may represent edema or infection. The radiologist also noted a large amount of ascites. ASSESSMENTS: 1. Acute respiratory failure, hypoxia. 2. Hypokalemia. 3. Hepatic encephalopathy. 4. Thrombocytopenia. 5. Severe protein-calorie malnutrition. 6. History of Crohn's disease. 7. Hyperbilirubinemia, transaminitis. 8. Cirrhosis. PLAN: At this time, the patient was diuresed yesterday. The patient states she feels much better. Continue the Aldactone at the home dose. Hold IV fluids for now. Consider paracentesis with laboratory analysis of the fluid. Agree with continuing Zosyn. Any other changes will be based on the progression of illness. The patient's status is still guarded. Thank you for allowing us to participate in her care. [place], [place] REPORT OF CONSULTATION NAME: JALYNWING K UNIT #: [id number] ROOM: [facility] DOCTOR: LEVI FRANCIS DO BIRTHDATE: [birth year] Carlos Francis DO IVA GIFFORD MD CM:CONSTR:REPORT OF CONSULTATION 1033 08/04/18 0619 interface
--- NOTE | ~2018-07-30 | PR ---
[place], [place] PROGRESS NOTE NAME: WING GUNDERSON [facility] #: [id number] UNIT #: [id number] ROOM: 421 DOCTOR: LEVI FRANCIS DO BIRTHDATE: [birth year] DOS: 08/04/2018 INTERVAL HISTORY OF PRESENT ILLNESS: The patient states her breathing is much better today. The patient states that she discussed palliative care with hospice and palliative care yesterday. The patient states that she is considering going home on either palliative or hospice. The patient states that her breathing has improved since yesterday. The patient denies chest pain, fevers, or chills. OBJECTIVE: VITAL SIGNS: Temperature is 97.9, pulse 87, respiratory rate 18, blood pressure 132/51, pulse ox is 97% on Optiflow 70% high flow oxygen. HEENT: Normocephalic, atraumatic. Eyes are icteric. NECK: Supple, nontender, trachea midline. HEART: S1, S2 audible. LUNGS: Crackles at the right base, diminished bilaterally. ABDOMEN: Soft, nontender, distended. EXTREMITIES: Erythema, edema bilateral lower extremities with ____ rash. NEUROLOGIC: Grossly intact. Not confused currently. LABORATORY DATA: Shows the patient's white count is increased from 21.9 to ____ today. The patient's creatinine has improved slightly since yesterday to 1.09, otherwise the patient's labs are stable. ASSESSMENT: 1. Acute respiratory failure, hypoxia, likely from edema. 2. Hypokalemia. 3. Hepatic encephalopathy. 4. Thrombocytopenia. 5. Severe-protein calorie malnutrition. 6. History of Crohn's disease. 7. Hyperbilirubinemia and transaminitis. 8. Cirrhosis, secondary to DOTSON, progressive liver failure at this time. 9. Anasarca. PLAN: At this time, the patient is stable from a pulmonary standpoint. The patient's shortness of breath with hypoxia is most likely related to pulmonary edema. Continue Aldactone at the home dose. Continue IV Lasix while the patient is inpatient. Consider continuing Lasix when the patient is discharged. Consider paracentesis today with laboratory analysis of the fluid. Agree with continuing Zosyn at this time. However, we do not think that there is pneumonia. Continue to hold IV fluids. Any other changes based on progression of illness. The patient's status is still very guarded with her liver failure. Thank you for allowing us to participate in the patient's care. Carlos Francis DO [place], [place] PROGRESS NOTE NAME: WING GUNDERSON UNIT #: [id number] ROOM: 421 DOCTOR: LEVI FRANCIS DO BIRTHDATE: [birth year] IVA GIFFORD MD CM:MU [id number] LEVI FRANCIS DO 08/05/18 0337 interface
--- NOTE | ~2018-07-30 | PR ---
[place], [place] PROGRESS NOTE NAME: [facility]ING [facility]UNDERSON [id number] UNIT #: [id number] ROOM: 421 DOCTOR: ИРИНА BEVERLY MD,IVA BIRTHDATE: [birth year] DOS: 08/08/2018 PULMONARY PROGRESS NOTE SUBJECTIVE: The patient was still struggling to maintain pulse ox saturation to a normal level. This morning was noted on 90% oxygen supplementation. Optiflow with the BiPAP requirement of the oxygen noted about 60%. She was noted low-grade fever yesterday evening was noted afebrile after that. She denies symptoms of coughing or chest pain. OBJECTIVE: VITAL SIGNS: For the patient were normal temperature, respiratory rate 18, heart rate 89, blood pressure 122/30. Pulse oxygen saturation recorded as 91% saturation. HEENT: Examination shows head was atraumatic. Eyes nonicterus. NECK: Supple. CARDIOVASCULAR: S1, S2 is audible. LUNGS: Noted without any wheezing or crackles of the lungs were present. ABDOMEN: Soft, nontender, bowel sounds present. EXTREMITIES: No acute change. IMPRESSION: 1. The patient with acute persistent hypoxic respiratory failure with interstitial edema. 2. Advanced liver cirrhosis. 3. Crohn's disease as well. 4. Coagulopathy secondary to liver dysfunction. PLAN OF MANAGEMENT: No changes in plan of management. Prognosis remains poor. No changes in the immediate treatment will be necessary today. IVA GIFFORD MD CM:PNTRANS [id number] IVA BEVERLY MD 08/09/18 0040 interface
[2018-07-30 16:32] VITALS: BP 167/63
[2018-07-30 17:00] VITALS: BP 133/58
[2018-07-30 17:09] LABS: BASO % 0.1 % (0.0-1.0); EOS # 0.1 10*3/uL (0.0-0.4); EOS % 1.3 % (1.0-4.0); HEMATOCRIT 37.4 % (37.0-47.0); HEMOGLOBIN 12.5 g/dl (12.0-16.0); LYMPH # 0.6 10*3/uL (1.3-4.4); LYMPH % 8.4 % (27.0-41.0); MEAN CELL VOLUME 103.3 fl (81.0-99.0); MEAN CORPUSCULAR HGB 34.5 pg (27.0-31.0); MEAN CORPUSCULAR HGB CONC 33.4 g/dl (33.0-37.0); MEAN PLATELET VOLUME 10.4 fl (9.6-12.3); MONO # 0.7 10*3/uL (0.1-1.0); MONO % 9.4 % (3.0-9.0); NEUT # 6.2 10*3/uL (2.3-7.9); NEUT % 80.5 % (47.0-73.0); PLATELET COUNT AUTOMATED 80 10*3/uL (130-400); RED BLOOD COUNT 3.62 10*6/uL (4.10-5.10); RED CELL DISTRI WIDTH 15.4 % (0-14.5); WHITE BLOOD COUNT 7.6 10*3/uL (4.8-10.8)
[2018-07-30 17:20] LABS: ACT PARTIAL THROMBO TIME 33.9 SECONDS (20.0-32.1); INTERNATIONAL NORM RATIO 2.1 (2.0-3.5)
[2018-07-30 17:29] LABS: ALBUMIN 2.3 gm/dl (3.1-4.5); ALKALINE PHOSPHATASE 115 U/L (45-117); BUN 14 mg/dl (7-24); CHLORIDE 111 mmol/L (98-107); CREATININE 0.89 mg/dL (0.55-1.02); POTASSIUM 2.9 mmol/L (3.5-5.1); SGOT/AST 24 IU/L (3-35); SGPT/ALT 28 U/L (12-78); SODIUM 143 mmol/L (136-145); TOTAL PROTEIN 6.2 gm/dL (6.4-8.2)
[2018-07-30 19:00] VITALS: BP 134/64
[2018-07-30 20:04] VITALS: BP 133/58
[2018-07-30 20:25] VITALS: BP 160/64
--- NOTE | 2018-07-30 20:25 | NUR ---
A 68, admitted to 5E, under the services of JOE Brock DO with a diagnosis of PETECHIAL RASH, THROMBOCYTOPENIA, HYPOKALEMIA. Chief complaint is BASIC NEEDS. Patient arrived via stretcher from ER. Monitor applied. Initial assessment completed. Vital signs taken and recorded. JOE BROCK DO notified of admission to the unit. Orders received. See assessment for past medical history, medications and allergies. Patient and/or family oriented to 5E. visitation policy reviewed. Clothing/patient valuable form completed. LEOPOLDO TOLBERT A
[2018-07-30] MEDS ORDERED: LACTULOSE20 GM/30 M PO (20:58)
[2018-07-30] MEDS ORDERED: MULTIVITAMINS1 EAC5 PO (21:00)
[2018-07-30] MEDS ORDERED: CALCIUM + VITA1 EAC2 PO (21:01)
[2018-07-30] MEDS ORDERED: FISH OIL 1,0001 EAC6 PO (21:02)
[2018-07-30] MEDS ORDERED: POTASSIUM CHLO20 ME4 PO (21:02)
[2018-07-30] MEDS ORDERED: SUPER B COMPLE1 EAC1 PO (21:03)
--- NOTE | 2018-07-30 21:04 | NUR ---
MED REC UP TO DATE PER LIST FROM PATIENT. DR. MILIAN AWARE AT THIS TIME.
[2018-07-31] VITALS: BP 116/64
[2018-07-31 06:31] LABS: BASO % 0.1 % (0.0-1.0); EOS # 0.1 10*3/uL (0.0-0.4); EOS % 1.3 % (1.0-4.0); HEMATOCRIT 35.9 % (37.0-47.0); LYMPH # 0.7 10*3/uL (1.3-4.4); LYMPH % 7.3 % (27.0-41.0); MEAN CELL VOLUME 100.6 fl (81.0-99.0); MEAN CORPUSCULAR HGB 33.6 pg (27.0-31.0); MEAN CORPUSCULAR HGB CONC 33.4 g/dl (33.0-37.0); MEAN PLATELET VOLUME 10.3 fl (9.6-12.3); MONO # 0.7 10*3/uL (0.1-1.0); MONO % 6.9 % (3.0-9.0); NEUT # 7.9 10*3/uL (2.3-7.9); NEUT % 83.8 % (47.0-73.0); PLATELET COUNT AUTOMATED 68 10*3/uL (130-400); RED BLOOD COUNT 3.57 10*6/uL (4.10-5.10); RED CELL DISTRI WIDTH 15.1 % (0-14.5); WHITE BLOOD COUNT 9.5 10*3/uL (4.8-10.8)
[2018-07-31 06:55] LABS: ALBUMIN 2.2 gm/dl (3.1-4.5); ALKALINE PHOSPHATASE 99 U/L (45-117); BUN 15 mg/dl (7-24); CHLORIDE 112 mmol/L (98-107); CHOLESTEROL 69 mg/dL (<200); CREATININE 0.67 mg/dL (0.55-1.02); HDL CHOLESTEROL 38 mg/dl (40-60); LDL CHOLESTEROL 19 mg/dL (9-159); PHOSPHOROUS 2.3 mg/dL (2.5-4.9); POTASSIUM 3.6 mmol/L (3.5-5.1); SGOT/AST 27 IU/L (3-35); SGPT/ALT 30 U/L (12-78); SODIUM 144 mmol/L (136-145); TOTAL PROTEIN 5.8 gm/dL (6.4-8.2); TRIGLYCERIDES 62 mg/dl (<150); VLDL CHOLESTEROL 12 mg/dL (6-40)
[2018-07-31 06:57] LABS: ACT PARTIAL THROMBO TIME 35.1 SECONDS (20.0-32.1); INTERNATIONAL NORM RATIO 2.4 (2.0-3.5)
[2018-07-31 09:13] VITALS: BP 135/57
[2018-07-31 12:00] VITALS: BP 136/52
[2018-07-31 16:00] VITALS: BP 121/47
--- NOTE | 2018-07-31 16:05 | NUR ---
DR. Lucila OMALLEY NOTIFIED OF 1-2+ EDEMA TO PT'S BILAT LOWER EXTREMITIES. SHE CURRENTLY HAS A K-PHOS RUN INFUSING. HE STATES TO CONTINUE INFUSING IT AND MONITOR PT FOR FLUID OVERLOAD SYMPTOMS.
[2018-07-31 20:00] VITALS: BP 133/52
[2018-08-01] VITALS: BP 118/51
[2018-08-01 06:00] LABS: BASO % 0.5 % (0.0-1.0); EOS # 0.3 10*3/uL (0.0-0.4); EOS % 3.6 % (1.0-4.0); HEMATOCRIT 32.1 % (37.0-47.0); HEMOGLOBIN 10.7 g/dl (12.0-16.0); LYMPH # 0.9 10*3/uL (1.3-4.4); LYMPH % 12.3 % (27.0-41.0); MEAN CELL VOLUME 99.7 fl (81.0-99.0); MEAN CORPUSCULAR HGB 33.2 pg (27.0-31.0); MEAN CORPUSCULAR HGB CONC 33.3 g/dl (33.0-37.0); MEAN PLATELET VOLUME 10.6 fl (9.6-12.3); MONO # 0.6 10*3/uL (0.1-1.0); MONO % 7.4 % (3.0-9.0); NEUT # 5.7 10*3/uL (2.3-7.9); NEUT % 75.8 % (47.0-73.0); PLATELET COUNT AUTOMATED 58 10*3/uL (130-400); RED BLOOD COUNT 3.22 10*6/uL (4.10-5.10); RED CELL DISTRI WIDTH 15.7 % (0-14.5); WHITE BLOOD COUNT 7.5 10*3/uL (4.8-10.8)
[2018-08-01 06:22] LABS: ALKALINE PHOSPHATASE 79 U/L (45-117); BUN 13 mg/dl (7-24); CHLORIDE 113 mmol/L (98-107); CREATININE 0.78 mg/dL (0.55-1.02); PHOSPHOROUS 3.7 mg/dL (2.5-4.9); POTASSIUM 3.6 mmol/L (3.5-5.1); SGOT/AST 30 IU/L (3-35); SGPT/ALT 27 U/L (12-78); SODIUM 145 mmol/L (136-145); TOTAL PROTEIN 5.1 gm/dL (6.4-8.2)
--- NOTE | 2018-08-01 07:30 | NUR ---
BEDSIDE REPORT RECIEVED FROM ANESTHETIST NURSE. PT IS RESTING IN BED AT THIS TIME WITH NO OBVIOUS SIGNS/SYMPTOMS OF PAIN OR DISCOMFORT. SHE STATES SHE IS FEELING MUCH BETTER. ON ASSESSMENT, HER MENTATION HAS IMPROVED SINCE YESTERDAY. RESPIRATIONS ARE EASY AND NONLABORED. BED IS LOCKED AND IN THE LOWEST POSITION, CALL LIGHT IS WITHIN REACH. WILL CONTINUE TO MONITOR PT.
[2018-08-01 07:36] LABS: ACT PARTIAL THROMBO TIME 40.4 SECONDS (20.0-32.1); INTERNATIONAL NORM RATIO 2.8 (2.0-3.5)
[2018-08-01 09:14] VITALS: BP 128/58
[2018-08-01 12:00] VITALS: BP 135/53
--- NOTE | 2018-08-01 13:32 | NUR ---
PT SON REQUESTING TO SPEAK TO DOCTOR. DR. Lucila OMALLEY NOTIFIED, STATES HE WILL BE IN TO TALK TO HIM.
--- NOTE | 2018-08-01 14:57 | NUR ---
PT requesting something for her cough. Give 2200 dose of mucinex now per Dr. Vásquez
[2018-08-01 16:00] VITALS: BP 145/52
[2018-08-01 20:00] VITALS: BP 138/54
--- NOTE | 2018-08-01 22:47 | NUR ---
2200 MEDICATIONS GIVEN AT THIS TIME. PATIENT HAD EPISODE OF INCONTINENCE AND SPILLED WATER ON BOTTOM OF BED. BED BATH PROVIDED AND BED LINENS CHANGED. CALL LIGHT IS WITHIN REACH.
[2018-08-02] VITALS: BP 97/40
--- NOTE | 2018-08-02 03:40 | NUR ---
PATIENT IS SLEEPING WITH EASY AND REGULAR RESPERS ON ROOM AIR. NO S/S OF DISTRESS NOTED, CALL LIGHT IS WITHIN REACH.
[2018-08-02 06:24] LABS: BASO % 0.4 % (0.0-1.0); EOS # 0.2 10*3/uL (0.0-0.4); EOS % 2.1 % (1.0-4.0); HEMATOCRIT 33.1 % (37.0-47.0); HEMOGLOBIN 10.8 g/dl (12.0-16.0); LYMPH # 1.2 10*3/uL (1.3-4.4); LYMPH % 12.1 % (27.0-41.0); MEAN CELL VOLUME 101.5 fl (81.0-99.0); MEAN CORPUSCULAR HGB 33.1 pg (27.0-31.0); MEAN CORPUSCULAR HGB CONC 32.6 g/dl (33.0-37.0); MEAN PLATELET VOLUME 10.6 fl (9.6-12.3); MONO # 0.7 10*3/uL (0.1-1.0); MONO % 7.6 % (3.0-9.0); NEUT # 7.5 10*3/uL (2.3-7.9); NEUT % 77.4 % (47.0-73.0); PLATELET COUNT AUTOMATED 53 10*3/uL (130-400); RED BLOOD COUNT 3.26 10*6/uL (4.10-5.10); RED CELL DISTRI WIDTH 15.9 % (0-14.5); WHITE BLOOD COUNT 9.6 10*3/uL (4.8-10.8)
[2018-08-02 06:45] LABS: ALBUMIN 1.9 gm/dl (3.1-4.5); BUN 13 mg/dl (7-24); CHLORIDE 112 mmol/L (98-107); CREATININE 0.86 mg/dL (0.55-1.02); PHOSPHOROUS 3.6 mg/dL (2.5-4.9); POTASSIUM 3.7 mmol/L (3.5-5.1); SGOT/AST 30 IU/L (3-35); SGPT/ALT 23 U/L (12-78); SODIUM 145 mmol/L (136-145); TOTAL PROTEIN 5.3 gm/dL (6.4-8.2)
[2018-08-02 06:46] LABS: ALKALINE PHOSPHATASE 79 U/L (45-117)
[2018-08-02 08:00] VITALS: BP 130/45
--- NOTE | 2018-08-02 09:36 | NUR ---
PHYSICAL THERAPY Patient evaluated on 5, full evaluation to follow. Continue with PT as per plan of care with fall and acute debility precautions. Home with family assist prn and home health RN and PT prn. PAtient is moderate complexity via chart review, tests and evaluation: 19311. Thank you for this referral. Greer Atkins,PT
--- NOTE | 2018-08-02 09:38 | NUR ---
Ann [place] Phan was evaluated by occupational therapy this date. She is able to complete her ADL's independently and states that she feels at her baseline with self-care. Ann Marie does have decreased standing endurance and decreased dynamic balance. Defer transfer and balance training to PT. No further acute OT at this time. Recommend D/C home with family assist. Zaynab Escalera OTR/L
--- NOTE | 2018-08-02 13:27 | NUR ---
SPEECH PATHOLOGY Orders for swallowing evaluation received however since that time, patient has experienced a decline in status and has been transferred to ICCU. New orders will need to be obtained in order for evaluation to be conducted, if this remains appropriate. Thank you for this referral. TYLER FOLEY MS [facility]-UNINDENTURED APPRENTICE
[2018-08-02 13:30] VITALS: BP 136/62
--- NOTE | 2018-08-02 13:30 | NUR ---
PT TRANSFERED TO ICCU ROOM 3 AT THIS TIME IN RESPIRATORY DISTRESS. POX 86% ON 100% NON REBREATHER MASK. TEMP 102.7. HR 117, ABGS OBTAINED. ICCU RN'S DISCUSSED PT CODE STATUS WITH HER INCLUDING POSSIBLE IMPENDING INTUBATION. PT STATES SHE DOES NOT WANT ANY HEROIC MEASURES OR VENTILATOR. PT'S SON IN THE ROOM AT THE TIME OF THESE DISCUSSIONS. DR ROMEO NOTIFIED AND CAME TO ICCU TO SPEAK WITH PT AND FAMILY REGARDING HER WISHES.
[2018-08-02 13:36] LABS: ABG HCO3 18.1 mmol/l (22-26); ABG O2 SATURATION 86.9 % (95-97); ARTERIAL BLOOD GAS PCO2 31.7 mmHg (35-45); ARTERIAL BLOOD GAS PH 7.386 (7.35-7.45); ARTERIAL BLOOD GAS PO2 65.5 mmHg (80-90)
--- NOTE | 2018-08-02 14:05 | NUR ---
MEDICATED WITH MOTRIN 400MG PO FOR TEMPERATURE 102.7. WILL CONTINUE TO MONITOR.
--- NOTE | 2018-08-02 15:50 | NUR ---
NOTIFIED OF NEW CONSULT. NEW ORDERS RECEIVED.
[2018-08-02 16:00] VITALS: BP 99/50
--- NOTE | 2018-08-02 16:00 | NUR ---
TEMPERATURE 99.3/T. MOTRIN EFFECTIVE.
[2018-08-02 16:01] LABS: HEMATOCRIT 32.4 % (37.0-47.0); HEMOGLOBIN 10.6 g/dl (12.0-16.0); MEAN CORPUSCULAR HGB 34.3 pg (27.0-31.0); MEAN CORPUSCULAR HGB CONC 32.7 g/dl (33.0-37.0); MEAN PLATELET VOLUME 10.9 fl (9.6-12.3); PLATELET COUNT AUTOMATED 56 10*3/uL (130-400); RED BLOOD COUNT 3.09 10*6/uL (4.10-5.10); RED CELL DISTRI WIDTH 15.8 % (0-14.5); WHITE BLOOD COUNT 17.4 10*3/uL (4.8-10.8)
[2018-08-02 16:14] LABS: BUN 16 mg/dl (7-24); CHLORIDE 111 mmol/L (98-107); CREATININE 1.04 mg/dL (0.55-1.02); PHOSPHOROUS 3.4 mg/dL (2.5-4.9); POTASSIUM 3.8 mmol/L (3.5-5.1); SODIUM 141 mmol/L (136-145)
[2018-08-02 16:20] LABS: BILIRUBIN 1+ (NEGATIVE); BLOOD TRACE-INTACT (NEGATIVE); CLARITY SL CLOUDY (CLEAR); COLOR YELLOW (YELLOW); GLUCOSE NEGATIVE (NEGATIVE); KETONE NEGATIVE (NEGATIVE); LEUKO ESTERASE NEGATIVE (NEGATIVE); NITRITE NEGATIVE (NEGATIVE); SPECIFIC GRAVITY 1.025 (1.005-1.030); UROBILINOGEN 0.2 E.U./dl (0.2-1.0)
[2018-08-02 16:24] LABS: MEAN CELL VOLUME 104.9 fl (81.0-99.0)
[2018-08-02 16:28] LABS: BACTERIA 1+; MUCOUS 1+; RBC 0-2 rbc/hpf (0-2)
[2018-08-02 16:34] LABS: TOTAL CELLS COUNTED 100 #CELLS
[2018-08-02 16:35] LABS: BURR CELLS MODERATE; PLATELET SUFFICIENCY LOW (NORMAL)
--- NOTE | 2018-08-02 17:05 | NUR ---
CHANGED BIPAP SETTINGS TO 16/10 AT 15:50 PER MD ORDER. REMOVED PT FROM BIPAP AT 16:40 AND PLACED ON OPTI-FLOW @ 55L/ 100% TO EAT SUPPER. SpO2 IS 93%.
--- NOTE | 2018-08-02 17:26 | NUR ---
PLACED PT BACK ON BIPAP 16/10 70% AT 17:20 AFTER EATING SUPPER. SpO2 94%
[2018-08-02 19:42] LABS: ABG BASE EXCESS -3.3 mmol/L (-2.0-2.0); ABG HCO3 19.5 mmol/l (22-26); ABG O2 SATURATION 97.9 % (95-97); ARTERIAL BLOOD GAS PCO2 29.6 mmHg (35-45); ARTERIAL BLOOD GAS PH 7.436 (7.35-7.45); ARTERIAL BLOOD GAS PO2 92.8 mmHg (80-90)
--- NOTE | 2018-08-02 19:53 | NUR ---
DR. GIFFORD NOTIFIED OF ABG RESULTS, NO FURTHER ORDERS RECEIVED. DOMENIC BROWN RN
[2018-08-02 20:00] VITALS: BP 104/47
--- NOTE | 2018-08-02 20:21 | NUR ---
PT. RESTING COMFORTABLY ON BIPAP, PULSE OX 98% ON 70% 02. HEP LOCKS IN RA AND RAN ASYMPT. LUNGS HAVE SCATTERED RHONCHI AND FINE PB RALES BILAT. ABDOMEN SOFTLY DISTENDED, NORMOACTIVE (ASCITIES). TRACE BLE EDEMA NOTED WITH PETECHIA. DOMENIC BROWN RN
[2018-08-03] VITALS: BP 95/44
[2018-08-03 04:00] VITALS: BP 92/44
[2018-08-03 05:25] LABS: CREATININE 1.14 mg/dL (0.55-1.02); TOTAL PROTEIN 5.7 gm/dL (6.4-8.2)
[2018-08-03 06:16] LABS: HEMATOCRIT 36.5 % (37.0-47.0); HEMOGLOBIN 11.9 g/dl (12.0-16.0); MEAN CELL VOLUME 103.7 fl (81.0-99.0); MEAN CORPUSCULAR HGB 33.8 pg (27.0-31.0); MEAN CORPUSCULAR HGB CONC 32.6 g/dl (33.0-37.0); MEAN PLATELET VOLUME 11.6 fl (9.6-12.3); PLATELET COUNT AUTOMATED 46 10*3/uL (130-400); RED BLOOD COUNT 3.52 10*6/uL (4.10-5.10); RED CELL DISTRI WIDTH 15.9 % (0-14.5); WHITE BLOOD COUNT 12.9 10*3/uL (4.8-10.8)
[2018-08-03 06:53] LABS: ACT PARTIAL THROMBO TIME 40.7 SECONDS (20.0-32.1); INTERNATIONAL NORM RATIO 3.6 (2.0-3.5)
[2018-08-03 07:23] LABS: BURR CELLS MODERATE; PLATELET SUFFICIENCY LOW (NORMAL); TOTAL CELLS COUNTED 100 #CELLS
--- NOTE | 2018-08-03 07:32 | NUR ---
PHYSICAL THERAPY PAtient transferred to ICCU due to respiratory distress. Will require new PT orders and evaluation when medically appropriate. Thank you. Greer Atkins,PT
--- NOTE | 2018-08-03 07:33 | NUR ---
PHYSICAL THERAPY CO-SIGN I approve of the Phyical Therapy notes written above. ABHISHEK AYOUB PT
[2018-08-03 08:00] VITALS: BP 92/52
--- NOTE | 2018-08-03 09:00 | NUR ---
Awake and alert. States feels a little better today, Abdomen softly distended w/ active peristalsis. Peticheal rash present BLE to lower thigh. Radiology called stating that w. lab values as they are . Pericentesis will not be done today. Dr. Jolly here and aware. Dr. Jolly spoke at length w/ family via phone.
--- NOTE | 2018-08-03 10:00 | NUR ---
Shift Lab Technician in to see patient. She is currently having an echo done at the bedside. Discharge plan undecided at this time.
--- NOTE | 2018-08-03 10:13 | NUR ---
ECHO in progress.
[2018-08-03 11:43] VITALS: BP 108/47
--- NOTE | 2018-08-03 11:48 | NUR ---
Discussed pallitive care w/ pt. she is agreeable to meet with them. Dr. Shanae lund and Shelby notified. Lactulose effective to produce large mushy BM. Tanisha care given Large hemmorhoid noted. Pt. expresses rectal pain. Barrier cream applied.
--- NOTE | 2018-08-03 14:18 | NUR ---
Up to [facility] for large loose BM. Slight bleeding from rectum noted. Barrier cream applied. Family in to visit.
[2018-08-03 16:00] VITALS: BP 115/51
--- NOTE | 2018-08-03 17:09 | NUR ---
Up to BSC c/o rectal pain . imflamed hemmorhoid visable. , Barrier cream to area. Dr. Jolly notified and orderes were recieved.
[2018-08-03 20:00] VITALS: BP 121/43
--- NOTE | 2018-08-03 20:09 | NUR ---
PT. RESTING IN BED WATCHING TV. LUNGS DIMINISHED BUT CLEAR BILAT, PULSE OX 92% ON 70% OPTI FLOW. ABDOMEN SOFTLY DISTENDED AND NORMO. 1+BLE EDEMA NOTED WITH PETECHIA. ALVARADO CATH DRAINING A CLEAR ZULY URINE. RESP. SLIGHTLY LABORED AT REST, VERY SOB WITH EXERTION. DOMENIC BROWN RN
--- NOTE | 2018-08-03 23:10 | NUR ---
PT. SLEEPING, VISTARIL EFFECTIVE. BIPAP PLACED BACK ON PATIENT FOR NIGHT. DOMENIC BROWN RN
[2018-08-04] VITALS: BP 120/53
[2018-08-04 04:00] VITALS: BP 132/51
[2018-08-04 04:49] LABS: HEMATOCRIT 34.2 % (37.0-47.0); HEMOGLOBIN 11.2 g/dl (12.0-16.0); MEAN CELL VOLUME 102.7 fl (81.0-99.0); MEAN CORPUSCULAR HGB 33.6 pg (27.0-31.0); MEAN CORPUSCULAR HGB CONC 32.7 g/dl (33.0-37.0); MEAN PLATELET VOLUME 11.6 fl (9.6-12.3); PLATELET COUNT AUTOMATED 59 10*3/uL (130-400); RED BLOOD COUNT 3.33 10*6/uL (4.10-5.10); RED CELL DISTRI WIDTH 15.3 % (0-14.5); WHITE BLOOD COUNT 21.6 10*3/uL (4.8-10.8)
[2018-08-04 04:58] LABS: INTERNATIONAL NORM RATIO 3.3 (2.0-3.5)
[2018-08-04 05:07] LABS: BUN 20 mg/dl (7-24); CHLORIDE 114 mmol/L (98-107); CREATININE 1.09 mg/dL (0.55-1.02); POTASSIUM 3.4 mmol/L (3.5-5.1); SODIUM 145 mmol/L (136-145)
[2018-08-04 05:38] LABS: BURR CELLS MODERATE; PLATELET SUFFICIENCY LOW (NORMAL); TOTAL CELLS COUNTED 100 #CELLS
--- NOTE | 2018-08-04 06:12 | NUR ---
PT OFF BIPAP AND ON HIGH FLOW NC 55L 70%
--- NOTE | 2018-08-04 07:15 | NUR ---
PT NOT ON BIPAP AT THIS TIME
[2018-08-04 08:00] VITALS: BP 110/40
--- NOTE | 2018-08-04 09:00 | NUR ---
Retail Consultant in to talk to patient. Patient states lives at home alone with her family checking in on her. There are 12 steps in the home. Physician: Dr. Shaheen Lou Pharmacy: [facility] Home health services: none Patient's level of ADLs: INDEPENDENT Patient has working utilities: yes DME: none Follow-up physician's appointment after d/c: will be made by the hospitalist nurse director upon discharge Does patient want to access PORTAL?: no Discharge plan discussed with patient. She lives at home alone with her family checking in on her. She is independent in her ADLs and ambulation. Discussed short term SNF and home health care services and she denies any home needs at this time. Discharge plan undecided. KAIT BRAVO
--- NOTE | 2018-08-04 09:01 | NUR ---
Awake and alert. States feels terrible today states "the only pain i have is my bottom" states has seepage of BM w/ coughing and movement. Bed soiled. Complete bed bath given , Rectal suppository and ointment applied for pain mgt. Repositioned, denture and oral care given. Breakfast ordered recieved and taking well. O2 De-sat 75% w/ RA during AM care.
--- NOTE | 2018-08-04 10:45 | NUR ---
To bedpan for 650 cc loose brown BM, continues to c/o rectal pain. Tanisha care and preperation H applied. Dr. Medina in to evaulate . Aware of painful rectum and excessive BM's. Ok to hild Lactulose. Med held .
[2018-08-04 12:00] VITALS: BP 129/63
[2018-08-04 16:00] VITALS: BP 109/58
--- NOTE | 2018-08-04 16:02 | NUR ---
aSSISTED TO beD TERESA FOR MODERATE LOOSE STOOL. PERICARE GIVEN. Repositioned to side.
--- NOTE | 2018-08-04 18:14 | NUR ---
Transferred to 421 via bed with belongings. Family in room and aware. Report to Micaela GARCIA.
[2018-08-04 20:00] VITALS: BP 115/33
--- NOTE | 2018-08-04 22:01 | NUR ---
NOTIFIED DR MILIAN THAT PT IS REQUESTING 25 MG VISTARIL FOR HS TO HELP HER SLEEP. PT STATES THAT SHE TOOK MEDICATION LAST NIGHT AND IT HELPED HER SLEEP.
--- NOTE | 2018-08-04 22:25 | NUR ---
PT GIVEN VISTARIL 25 MG AT THIS TIME FOR INSOMNIA/ANXIETY. WILL MONITOR FOR EFFECTIVENESS. PT CHANGED AT THIS TIME. CONTINUES TO HAVE LOOSE STOOL WITH STREAKS OF BRIGHT RED BLOOD. PT C/O PAIN TO HEMORRHOIDS AND STATES PAIN WORSENS WHEN WE ARE CHANGING HER. WILL NOTIFY PHYSICIAN OF PT PAIN AND REQUEST SOMETHING FOR PAIN PER PT REQUEST.
--- NOTE | 2018-08-04 23:14 | NUR ---
PHYSICIAN GIVES ORDERS TO GIVE PT NORCO 5-325 MG TAB Q6H PRN FOR PAIN. PT MEDICATED WITH NORCO AT THIS TIME. WILL MONITOR FOR EFFECTIVENESS. PT LYING IN BED, HOB ELEVATED. OPTIFLOW IN PLACE. PT POX 93%. PT DENIES SOB OR DISTRESS OTHER THAN THE PAIN SHE IS HAVING AT THIS TIME. WILL CONTINUE TO MONITOR.
[2018-08-05] VITALS: BP 98/50
--- NOTE | 2018-08-05 00:14 | NUR ---
NORCO EFFECTIVE PER PT. PT STATES THAT SHE IS FEELING MUCH BETTER AT THIS TIME. PT PLACED ON BIPAP BY RESPIRATORY, POX HIGH 90S. RESPIRATIONS EASY AND UNLABORED. WILL CONTINUE TO MONITOR. HOB ELEVATED, ALL SAFETY MEASURES IN PLACE. CALL LIGHT IN REACH.
[2018-08-05 06:16] LABS: MEAN CORPUSCULAR HGB CONC 32.6 g/dl (33.0-37.0); PLATELET COUNT AUTOMATED 48 10*3/uL (130-400); WHITE BLOOD COUNT 14.8 10*3/uL (4.8-10.8)
[2018-08-05 06:18] LABS: HEMATOCRIT 34.4 % (37.0-47.0); HEMOGLOBIN 11.2 g/dl (12.0-16.0); MEAN CELL VOLUME 102.4 fl (81.0-99.0); MEAN CORPUSCULAR HGB 33.3 pg (27.0-31.0); MEAN PLATELET VOLUME 11.6 fl (9.6-12.3); RED BLOOD COUNT 3.36 10*6/uL (4.10-5.10); RED CELL DISTRI WIDTH 15.6 % (0-14.5)
[2018-08-05 06:27] LABS: BUN 19 mg/dl (7-24); CHLORIDE 114 mmol/L (98-107); CREATININE 0.99 mg/dL (0.55-1.02); POTASSIUM 3.6 mmol/L (3.5-5.1); SODIUM 145 mmol/L (136-145)
[2018-08-05 06:57] LABS: INTERNATIONAL NORM RATIO 2.5 (2.0-3.5)
[2018-08-05 07:22] LABS: PLATELET SUFFICIENCY LOW (NORMAL); TOTAL CELLS COUNTED 100 #CELLS
[2018-08-05 08:00] VITALS: BP 114/44
--- NOTE | 2018-08-05 09:00 | NUR ---
Manufacture Specialist in to see patient. Discussed LTAC and she is agreeable. When provided with a list of facilities she chose [facility] in [place]. regional planner notified.
--- NOTE | 2018-08-05 11:37 | NUR ---
Patient referred to [facility], will require precert.
[2018-08-05 12:00] VITALS: BP 117/43
[2018-08-05 16:00] VITALS: BP 123/83
--- NOTE | 2018-08-05 19:30 | NUR ---
TOOK OVER CARE OF PT AT THIS TIME. PT AWAKE, ALERT, ORIENTED WITH NC AT 12L. RESPIRTIONS EASY AND UNLABORED. CONTINUOUS POX IN PLACE, POX 93%. PT DENIES NEEDING ANYTHING AT THIS TIME. ASSESSMENT COMPLETE WITH NO NEW ABNORMALITIES NOTED. WILL CONTINUE TO MONITOR. CALL LIGHT IN REACH.
[2018-08-05 20:00] VITALS: BP 103/64
--- NOTE | 2018-08-05 21:00 | NUR ---
HS MEDICATIONS TAKEN AT THIS TIME. PT TAKEN OFF OF BIPAP AND PLACED ON 12L NC. NO DISTRESS NOTED. WILL CONTINUE TO MONITOR. CALL LIGHT IN REACH.
[2018-08-06] VITALS (12 sets, daily range): BP systolic 103–131; BP diastolic 41–69
--- NOTE | 2018-08-06 03:23 | NUR ---
PT RESTING IN BED AT THIS TIME. BIPAP IN PLACE. POX 99%. RESPIRATIONS EASY AND UNLABORED. NO S/S OF DISTRESS NOTED. WILL CONTINUE TO MONITOR. ALL SAFETY MEASURES IN PLACE. CALL LIGHT IN REACH.
[2018-08-06 06:38] LABS: MEAN CELL VOLUME 104.4 fl (81.0-99.0)
[2018-08-06 06:40] LABS: HEMATOCRIT 33.4 % (37.0-47.0); HEMOGLOBIN 10.8 g/dl (12.0-16.0); MEAN CORPUSCULAR HGB 33.8 pg (27.0-31.0); MEAN CORPUSCULAR HGB CONC 32.3 g/dl (33.0-37.0); MEAN PLATELET VOLUME 11.7 fl (9.6-12.3); PLATELET COUNT AUTOMATED 49 10*3/uL (130-400); RED CELL DISTRI WIDTH 15.6 % (0-14.5); WHITE BLOOD COUNT 13.3 10*3/uL (4.8-10.8)
[2018-08-06 06:54] LABS: BUN 20 mg/dl (7-24); CHLORIDE 111 mmol/L (98-107); CREATININE 0.89 mg/dL (0.55-1.02); SODIUM 146 mmol/L (136-145)
[2018-08-06 07:13] LABS: INTERNATIONAL NORM RATIO 3.1 (2.0-3.5)
[2018-08-06 07:14] LABS: POTASSIUM 4.7 mmol/L (3.5-5.1)
[2018-08-06 07:41] LABS: PLATELET SUFFICIENCY LOW (NORMAL); TOTAL CELLS COUNTED 100 #CELLS
--- NOTE | 2018-08-06 07:52 | NUR ---
From [facility]: [employer] is out of network. There is a secondary insurance plan, but it is stated as "unknown". The member will need to call [employer] and update. She has a out of network deductible of $200 which has been met. Out of network co-pay of $165 per admission. Out of network and out of pocket max is $3,000 of which $897.78 has been met. Co-insurance is 0% until the co-pay has been paid, then it will cover 100%, authorization required, no LTAC Day max. Display Designer Billie Bryson notified, will discuss with patient.
--- NOTE | 2018-08-06 09:00 | NUR ---
PATIENT TAKEN OFF BIPAP AND PLACED ON 15 ML/M HIGH FLOW CANNULA, SPO2 96% HR 76.
--- NOTE | 2018-08-06 09:00 | NUR ---
Analysis Consultant in to see patient. Discussed $2000 + $165 upfront costs for [facility]. She wanted to know if she could make payments, farm planner notified.
--- NOTE | 2018-08-06 11:31 | NUR ---
Teressa checked co insurance and found that the co insurance will cover the $2,000 out of pocket so patient would only have to pay the $165 admission fee. Asked her to please start precert. Waiting for auth.
--- NOTE | 2018-08-06 11:45 | NUR ---
Hiv Nurse in to see patient. Informed patient she would now need the $165 upfront costs for [facility] in [place] and she is agreeable. wedding planner notified. When medically stable and auth is received she will be discharged to [facility].
--- NOTE | 2018-08-06 12:31 | NUR ---
PATIENT RESTING IN HER BED AT THIS TIME WITH 12LNC HF. COMFORTABLE WITH NO S/S OF DISTRESS. CALL LIGHT WITHIN REACH.
--- NOTE | 2018-08-06 13:13 | NUR ---
SPOKE WITH JOHN IN ULTRASOUND ABOUT PLANNED US PARACENTESIS. STATED THAT THIS PATIENT IS ON 12L HFNC AT THIS TIME, OR SHE WILL BE ON A BIPAP. I DO NOT FEEL THAT SHE IS STABLE ENOUGH TO BE TRANSPORTED TO ULTRASOUND AND PLACED ON ANYTHING LESS DURING THE PROCEDURE SINCE SHE FALLS INTO THE 80'S ON THE 12L HFNC OFTEN WITH ANY AMOUNT OF EXERTION, INCLUDING COUGHING AND TALKING. JOHN STATES THAT SHE WILL BE SPEAKING WITH DR HURLEY AND WILL CALL ME BACK.
--- NOTE | 2018-08-06 14:23 | NUR ---
PARACENTESIS DONE AT BEDSIDE WITH DR HURLEY. [id number] OUT VIA PARACENTESIS NEEDLE. CALLED DR ROMEO TO LET HER KNOW, RECEIVED DR CAUSEY NUMBER AND CALLED HIM TO ASK IF HE WANTED THE FLUID SENT TO LAB FOR ANY TESTING. STATES HE WILL PUT ORDERS IN.
--- NOTE | 2018-08-06 15:21 | NUR ---
PATIENT RESTING COMFORTABLY IN HER BED AT THIS TIME. NO S/S OF DISTRESS. CALL LIGHT WITHIN REACH. NO S/S OF BLEEDING AT PUNCTURE SITE.
--- NOTE | 2018-08-06 19:00 | NUR ---
PT AWAKE IN BED WATCHING TV DURING BEDSIDE SHIFT REPORT. NO C/O VOICED. CALL LIGHT IN REACH.
--- NOTE | 2018-08-06 22:49 | NUR ---
24 HR chart check completed.
[2018-08-07] VITALS: BP 121/48
[2018-08-07 06:21] LABS: HEMATOCRIT 35.1 % (37.0-47.0); HEMOGLOBIN 11.7 g/dl (12.0-16.0); MEAN CORPUSCULAR HGB 33.6 pg (27.0-31.0); MEAN CORPUSCULAR HGB CONC 33.3 g/dl (33.0-37.0); MEAN PLATELET VOLUME 11.6 fl (9.6-12.3); NUCLEATED RED BLOOD CELL 0.2 % (0.0-0.0); PLATELET COUNT AUTOMATED 39 10*3/uL (130-400); RED BLOOD COUNT 3.48 10*6/uL (4.10-5.10); RED CELL DISTRI WIDTH 15.5 % (0-14.5); WHITE BLOOD COUNT 12.9 10*3/uL (4.8-10.8)
[2018-08-07 06:32] LABS: MEAN CELL VOLUME 100.9 fl (81.0-99.0)
[2018-08-07 06:52] LABS: ALBUMIN 2.3 gm/dl (3.1-4.5); BUN 20 mg/dl (7-24); CHLORIDE 108 mmol/L (98-107); CREATININE 0.93 mg/dL (0.55-1.02); POTASSIUM 4.1 mmol/L (3.5-5.1); SGOT/AST 36 IU/L (3-35); SGPT/ALT 24 U/L (12-78); SODIUM 143 mmol/L (136-145); TOTAL PROTEIN 5.8 gm/dL (6.4-8.2)
[2018-08-07 06:56] LABS: ALKALINE PHOSPHATASE 96 U/L (45-117)
[2018-08-07 07:10] LABS: BURR CELLS FEW; PLATELET SUFFICIENCY LOW (NORMAL); TOTAL CELLS COUNTED 100 #CELLS
[2018-08-07 09:18] VITALS: BP 112/32
--- NOTE | 2018-08-07 09:21 | NUR ---
DR. RAVI CALLED AT THIS TIME AND MADE AWARE OF PATIENTS BLOOD PRESSURE BEING 112/32. ORDERED TO HOLD LOPRESSOR AND LASIX AT THIS TIME. STATED SHE WILL BE UP TO SEE PATIENT.
[2018-08-07 09:30] VITALS: BP 112/32
[2018-08-07 13:42] VITALS: BP 118/54
--- NOTE | 2018-08-07 14:51 | NUR ---
Urine in [place] Cath noted to have a large amount of sediment and not draining well. JOSE Marques notified. Changed lindo catheter bag and tubing. Patient tolerated well.
--- NOTE | 2018-08-07 16:14 | NUR ---
1400: CHECKED SPO2 BEFORE DA, SPO2 77% ON RT HAND. SPO2 READING 88 VIA LEFT FOOT ON MONITOR. NURSING STAFF HAVE BEEN GETTING SIMILAR READINGS VIA THE PT'S HANDS T/O THE DAY. THEREFORE, FIO2 INCREASED TO 70%. SPO2 INCREASED TO 85% ON HAND. SPO2 90% ON EXTERNAL MONITOR. PT AAO.
[2018-08-07 20:00] VITALS: BP 126/36
[2018-08-08] VITALS: BP 122/30
--- NOTE | 2018-08-08 03:15 | NUR ---
PT YELLING OUT FOR HELP. UPON ENTERING ROOM, PT HAD REMOVED BIPAP AND WAS SPITTING UP PHLEGM. EPISTAXIS NOTED WELL. SAT DECREASED TO 70%. RESP PHONED AND PT PLACED BACK ON OPTIFLOW AT THIS TIME. PT STATES THAT NAUSEA HAS SUBSIDED AT THIS TIME. PT REPOSITIONED FOR COMFORT. WILL CONTINUE TO MONITOR. PT ENCOURAGED TO USE CALL LIGHT. CALL LIGHT IN REACH.
--- NOTE | 2018-08-08 03:36 | NUR ---
DR. PARISH NOTIFIED OF PT'S BUTTOCKS/VAGINA RED/EXCORIATED. TO ORDER CALAZIME.
[2018-08-08 06:32] LABS: HEMATOCRIT 32.6 % (37.0-47.0); HEMOGLOBIN 10.8 g/dl (12.0-16.0); MEAN CELL VOLUME 101.6 fl (81.0-99.0); MEAN CORPUSCULAR HGB 33.6 pg (27.0-31.0); MEAN CORPUSCULAR HGB CONC 33.1 g/dl (33.0-37.0); MEAN PLATELET VOLUME 12.9 fl (9.6-12.3); PLATELET COUNT AUTOMATED 46 10*3/uL (130-400); RED BLOOD COUNT 3.21 10*6/uL (4.10-5.10); RED CELL DISTRI WIDTH 15.4 % (0-14.5); WHITE BLOOD COUNT 13.8 10*3/uL (4.8-10.8)
[2018-08-08 06:53] LABS: BUN 23 mg/dl (7-24); CHLORIDE 105 mmol/L (98-107); CREATININE 1.01 mg/dL (0.55-1.02); POTASSIUM 4.4 mmol/L (3.5-5.1); SODIUM 142 mmol/L (136-145)
[2018-08-08 07:04] LABS: INTERNATIONAL NORM RATIO 3.8 (2.0-3.5)
[2018-08-08 07:09] LABS: PLATELET SUFFICIENCY LOW (NORMAL); TOTAL CELLS COUNTED 100 #CELLS
[2018-08-08 07:10] LABS: POLYCHROMASIA SLIGHT
[2018-08-08 12:00] VITALS: BP 102/32
[2018-08-08 16:00] VITALS: BP 116/40
[2018-08-08 20:00] VITALS: BP 107/35
--- NOTE | 2018-08-08 21:49 | NUR ---
PATIENT TAKEN OFF BIPAP AND PLACED ON OPIT FLOW AT 55L/M OF 90%. SPO2 95% HR 97.
--- NOTE | 2018-08-08 21:55 | NUR ---
PT PLACED ON HI FLOW CANNULA BY RESPIRATORY. CONTINUOUS POX IN PLACE. PO MEDICATIONS ADMINISTERED AT THIS TIME. NO ISSUES NOTED. DENIES ANY PAIN. EDUCATED PT TO USE CALL LIGHT TO LET RN KNOW WHEN SHE IS READY TO BE PLACED BACK ON BIPAP.
--- NOTE | 2018-08-08 23:14 | NUR ---
PT REPOSITIONED IN BED. O2 IN USE VIA OPTIFLOW CANNULA. POX 90-92% AFTER REPOSITIONING. APPLESAUCE PROVIDED PER PT REQUEST AND FRESH WATER ALSO PROVIDED. PT STATES SHE WILL GO BACK ON BIPAP AFTER SHE IS FINISHED EATING/DRINKING. RESPIRATORY THERAPIST NOTIFIED. BED LEFT LOCKED IN LOW POSITION, BED ALARM INTACT, CALL LIGHT IN REACH.
--- NOTE | 2018-08-08 23:41 | NUR ---
PATIENT PLACED BACK ON BIPAP 16/10 60%. HR 84 SPO2 91%
[2018-08-09] VITALS: BP 103/42
--- NOTE | 2018-08-09 02:30 | NUR ---
MASK REPOSITIONED ON FACE MACHINE WAS ALARMING PT DISCONNECT. POX 91-94%. NO ALARMS NOTED AFTER REPOSITIONING. WILL MONITOR. CALL LIGHT LEFT IN REACH.
--- NOTE | 2018-08-09 04:17 | NUR ---
BOILER MAKER CALLED RN TO NOTIFY THAT PATIENT'S POX WAS DESATING TO 76%. RN INTO PATIENT'S ROOM. PT FOUND WITH BIPAP MASK OFF. BIPAP MASK REAPPLIED. POX SLOWLY CLIMBING, UP TO 90%. RESPIRATORY CALLED TO BEDSIDE. PATIENT PLACED ON OPTIFLOW CANNULA. WILL CONTINUE TO MONITOR.
--- NOTE | 2018-08-09 08:40 | NUR ---
Continuing to work on getting precert for [facility], will follow
--- NOTE | 2018-08-09 09:00 | NUR ---
Concert Or Lecture Hall Manager in to see patient. No new needs or request at this time. When medically stable and auth is received she will be discharged to [facility]. mechanical planner following.
[2018-08-09 12:00] VITALS: BP 96/48
[2018-08-09 16:00] VITALS: BP 98/40
--- NOTE | 2018-08-09 16:44 | NUR ---
PATIENT HYPOTENSIVE, ASYMPTOMATIC, CURRENTLY RESTING IN BED. WILL CONTINUE TO MONITOR. PATIENT OXYGEN SATURATION STILL BETWEEN 88-91%
--- NOTE | 2018-08-09 18:39 | NUR ---
PATIENT OXYGEN SATURATION 82-85% WILL CALL RESPIRATORY TO HAVE HER PUT ON BIPAP.
--- NOTE | 2018-08-09 18:50 | NUR ---
PATIENT PLACED ON BIPAP. OXYGEN SATURATION INCREASED TO 89%
--- NOTE | 2018-08-09 19:30 | NUR ---
Pt resting on her BiPap of 16/10 and FiO2 of 75%. SpO2 is 96%. Alarms on and audible. Call light within reach.
[2018-08-09 20:00] VITALS: BP 118/53
--- NOTE | 2018-08-09 21:35 | NUR ---
Pt taken off BiPap for nurse meds and placed on OptiFlow of 100% and 50L. SpO2 was 90%.
[2018-08-10] VITALS (7 sets, daily range): BP systolic 88–112; BP diastolic 30–48
--- NOTE | 2018-08-10 01:14 | NUR ---
24 HR chart check completed.
[2018-08-10 06:41] LABS: BASO % 0.2 % (0.0-1.0); EOS # 0.7 10*3/uL (0.0-0.4); HEMATOCRIT 34.4 % (37.0-47.0); HEMOGLOBIN 11.3 g/dl (12.0-16.0); LYMPH # 0.8 10*3/uL (1.3-4.4); LYMPH % 4.3 % (27.0-41.0); MEAN CELL VOLUME 101.8 fl (81.0-99.0); MEAN CORPUSCULAR HGB 33.4 pg (27.0-31.0); MEAN CORPUSCULAR HGB CONC 32.8 g/dl (33.0-37.0); MONO # 0.6 10*3/uL (0.1-1.0); MONO % 3.2 % (3.0-9.0); NEUT # 15.6 10*3/uL (2.3-7.9); NEUT % 87.6 % (47.0-73.0); NUCLEATED RED BLOOD CELL 0.1 % (0.0-0.0); PLATELET COUNT AUTOMATED 84 10*3/uL (130-400); RED BLOOD COUNT 3.38 10*6/uL (4.10-5.10); RED CELL DISTRI WIDTH 15.2 % (0-14.5); WHITE BLOOD COUNT 17.7 10*3/uL (4.8-10.8)
[2018-08-10 07:10] LABS: CREATININE 1.34 mg/dL (0.55-1.02)
[2018-08-10 07:21] LABS: INTERNATIONAL NORM RATIO 5.4 (2.0-3.5)
--- NOTE | 2018-08-10 07:35 | NUR ---
DR. ROMEO NOTIFIED OF MOST RECENT PT/INR.
--- NOTE | 2018-08-10 08:30 | NUR ---
PT PLACED ON BIPAP. O2 SAT AT 75% WITH 90% OPTIFLOW IN PLACE AT 55 L/M. SAT TO 92-95% ON 80% BIPAP. 0930- OFF BIPAP AND PLACED ON OPTOFLOW FOR PILLS AND BREAKFACST. OPTIFLOW AT APPROX. 90% FIO2 AND 55 L/M. PT SAT IS 85% FIOW AT THIS TIME. NO C/O SOB. AWAITING BREAKFAST. NO CONDENSATION IN TUBING.
--- NOTE | 2018-08-10 09:00 | NUR ---
Lay Out Drafter in to see patient. No new needs or request at this time. When medically stable she will be discharged to [facility]. telecommunications network planner following.
--- NOTE | 2018-08-10 09:53 | NUR ---
MEDICATED WITH PRN PO NORCO FOR C/O HEADACHE.
--- NOTE | 2018-08-10 09:58 | NUR ---
HELD PO LOPRESSOR FOR BP 88/32 MANUALLY THIS MORNING. PATIENT REMAINS ALERT/ORIENTED/ASYMPTOMATIC.
--- NOTE | 2018-08-10 10:07 | NUR ---
Patient has just received auth for [facility] and is able to discharge there today. Notified Dr. Jolly who will discuss with Dr. Alfaro.
--- NOTE | 2018-08-10 10:48 | NUR ---
PRN PO NORCO EFFECTIVE, PER PATIENT.
--- NOTE | 2018-08-10 11:42 | NUR ---
ASSUMED CARE OF PATIENT AT THIS TIME. PATIENT RESTING IN HER BED, OPTIFLOW INTACT IN NOSTRILS. MOVED PULSE OX PROBE TO DIFFERENT TOE TO PREVENT INJURY. PATIENT HAS BILATERAL CRACKLES T/O. BP LOW. DOCUMENTED, DOCTORS AWARE THAT BP HAS BEEN RUNNING LOW. PATIENT IS ASYMPTOMATIC. PATIENT WANTS TO TAKE A NAP. HELPED TO REPOSITION FOR COMFORT, PLACED PATIENT'S CALL LIGHT WITHIN REACH BEFORE LEAVING ROOM. NO S/S OF DISTRESS AT THIS TIME.
--- NOTE | 2018-08-10 12:46 | NUR ---
PATIENT PLACED ON BIPAP DUE TO DESATING TO 80% ON OPTIFLOW. PATIENT TOLERATING WELL. RESPIRATORY THERAPIST IN TO SEE PATIENT AT THIS TIME WELL. DUONEB GIVEN TO PATIENT VIA BIPAP MACHINE. PATIENT'S FAMILY AT BEDSIDE. CALL LIGHT WITHIN REACH. PULSE OX AT 90% ON BIPAP.
[2018-08-11] VITALS: BP 112/43
[2018-08-11 06:52] LABS: ALBUMIN 1.7 gm/dl (3.1-4.5); CREATININE 1.53 mg/dL (0.55-1.02); TOTAL PROTEIN 5.4 gm/dL (6.4-8.2)
[2018-08-11 07:23] LABS: HEMOGLOBIN 11.8 g/dl (12.0-16.0); MEAN CORPUSCULAR HGB 34.2 pg (27.0-31.0); MEAN CORPUSCULAR HGB CONC 34.7 g/dl (33.0-37.0); MEAN PLATELET VOLUME 12.4 fl (9.6-12.3); PLATELET COUNT AUTOMATED 88 10*3/uL (130-400); RED BLOOD COUNT 3.45 10*6/uL (4.10-5.10); WHITE BLOOD COUNT 24.8 10*3/uL (4.8-10.8)
[2018-08-11 07:25] LABS: MEAN CELL VOLUME 98.6 fl (81.0-99.0)
[2018-08-11 07:35] LABS: INTERNATIONAL NORM RATIO 5.5 (2.0-3.5)
[2018-08-11 08:00] VITALS: BP 103/30
[2018-08-11 08:19] LABS: PLATELET SUFFICIENCY LOW (NORMAL); POLYCHROMASIA SLIGHT; TOTAL CELLS COUNTED 100 #CELLS
[2018-08-11 08:20] LABS: BURR CELLS FEW
--- NOTE | 2018-08-11 10:00 | NUR ---
Machine Sewer in to see patient. She states she is waiting on a bed at [facility].
[2018-08-11 12:00] VITALS: BP 103/34
[2018-08-11 16:00] VITALS: BP 102/35
--- NOTE | 2018-08-11 17:52 | NUR ---
PATIENT C/O GENERALIZED PAIN. MEDICATED WITH NORCO PER PRN ORDER. WILL CONTINUE TO MONITOR.
--- NOTE | 2018-08-11 18:12 | NUR ---
18:15 PT ON BIPAP.SITTING ON EDGE OF BED. SPO2 74% PT WITH FAMILY. FAMILY REQUESTING PT TO BE PLACED ON OPTI FLOW TP BE ABLE TO COMMUNICATE. PT PLACED ON OPTI FLOW AT 100% AND 60 LPM TO OBTAIN SPO2 OF 85%. PT AAO.
[2018-08-11 19:53] LABS: CREATININE 1.66 mg/dL (0.55-1.02)
[2018-08-11 19:55] LABS: POTASSIUM 4.1 mmol/L (3.5-5.1)
--- NOTE | 2018-08-11 19:57 | NUR ---
DR. PARISH NOTIFIED OF PT'S LOW BLOOD PRESSURE OF 92/40 MANUALLY. ORDERS FOR A 500CC BAG OF NS AT 150CC/HR AND RECHECK AFTER BAG IS FINISHED. WILL MONITOR PT.
[2018-08-11 20:00] VITALS: BP 92/40
[2018-08-11 23:29] VITALS: BP 108/38
--- NOTE | 2018-08-12 03:00 | NUR ---
PT. REMAINS ON OPTIFLOW, REFUSES BIPAP.
[2018-08-12 06:21] LABS: HEMOGLOBIN 11.4 g/dl (12.0-16.0); MEAN CELL VOLUME 97.4 fl (81.0-99.0); MEAN CORPUSCULAR HGB 32.7 pg (27.0-31.0); MEAN CORPUSCULAR HGB CONC 33.5 g/dl (33.0-37.0); MEAN PLATELET VOLUME 11.2 fl (9.6-12.3); PLATELET COUNT AUTOMATED 86 10*3/uL (130-400); RED BLOOD COUNT 3.49 10*6/uL (4.10-5.10); RED CELL DISTRI WIDTH 15.2 % (0-14.5); WHITE BLOOD COUNT 19.5 10*3/uL (4.8-10.8)
[2018-08-12 06:46] LABS: CREATININE 1.51 mg/dL (0.55-1.02); POTASSIUM 3.8 mmol/L (3.5-5.1)
[2018-08-12 07:10] LABS: INTERNATIONAL NORM RATIO 7.4 (2.0-3.5)
--- NOTE | 2018-08-12 07:30 | NUR ---
PT UTILIZING OPTIFLOW AT 100% AND 57 L/M. SAT IS 92-94% AT REST. TOLERATING WELL. TUBING CLEAR OF ANY CONDENSATION. DOES NOT WANT BIPAP AT THIS TIME. GOING TO EAT. NO TITRATION AT THIS TIME.
[2018-08-12 07:31] LABS: BASOPHILS 1 % (0-1); BURR CELLS FEW; PLATELET SUFFICIENCY LOW (NORMAL); TOTAL CELLS COUNTED 100 #CELLS
[2018-08-12 08:00] VITALS: BP 108/38
--- NOTE | 2018-08-12 09:00 | NUR ---
Bioinformatics Assistant in to see patient. She states she is waiting on a bed at [facility].
--- NOTE | 2018-08-12 11:35 | NUR ---
PT PLACED ON BIPAP AT 90%. SAT IS 92% AND HR 101 ON BIPAP. RN NOTIFIED.
[2018-08-12 12:00] VITALS: BP 111/39
--- NOTE | 2018-08-12 14:15 | NUR ---
PT TAKEN OFF BIPAP PER PT REQUEST AND PLACED ON OPTIFLOW AT 100% AT 57 L/M. HR 100 SAT 100%. RN NOTIFIED.
[2018-08-12 16:00] VITALS: BP 89/37
--- NOTE | 2018-08-12 17:30 | NUR ---
IN WITH FAMILY TO DISCUSS PATIENT CONDITION.
[2018-08-12 20:00] VITALS: BP 111/43
--- NOTE | 2018-08-12 23:51 | NUR ---
AWARE THAT PATIENT REFSUED ALL NIGHT TIME MEDS
[2018-08-13] VITALS: BP 102/37
--- NOTE | 2018-08-13 | NUR ---
IMPLEMENTATION SPECIALIST CALLED TO INFORM THAT PT P.OX WA IN THE 60'S. PATIENT HAD TAKEN O2 OFF AND WAS AGGITATED D/T SOILING SELF. PATIENT PLACED BACK ON O2 AND COMLETED BED CHANGE COMPLETED. PATIENT MORE RELAXED AT THIS TIME, STILL ANXIOUS. REFUSING BIPAP AFTER EDUCATION. P.OX REMAIN IN HIGH 70'S
--- NOTE | 2018-08-13 00:30 | NUR ---
DR. PARISH AWARE THAT PATIENT IS CURRENTLY SATING 78-80% ON 100% HIGH ACACIA AND REFUSING BIPAP. INFORMED THAT PATIENT IS A COMFORT CARE AND IS CURRENTLY A&OX3. STATED OK TO JUST MONITOR
--- NOTE | 2018-08-13 00:38 | NUR ---
PT REFUSING BIPAP AT THIS TIME. SATS CURRENTLY 70%. PT ENCOURAGED TO WEAR BIPAP. PT CONTINUES TO ADAMENTLY REFUSE. PT REMAINS ON OPTI FLOW 100%/60L. PT APPEARS COMFORTABLE AND HAS NO COMPLAINTS OF SOB OR RES DISTRESS. WILL CONTINUE TO REASSES NEEDED.
--- NOTE | 2018-08-13 02:33 | NUR ---
REED PRESS FEEDER CALLED INFORMED POX 70'S. PATIENT FOUND TO HAVE TAKEN O2 OFF, TUBING IRRIATATING SKIN. AREA CLEANED AND GAUZE PLACED FOR COMFORT. PATIENT STATES IT IS MORE TOLERABLE NOW. POX 91% NOW
--- NOTE | 2018-08-13 03:09 | NUR ---
GRAY TENDER CALLED, POX 62%. PATIENT HAD TOOK O2 OFF. O2 REAPPLIED AND GAUZE READJUSTED. PATIENT EDUCATED ON NOT TAKING O2 OFF. POX BACK UP INTO HIGH 80'S
--- NOTE | 2018-08-13 03:10 | NUR ---
PATIET IS REFUSING BIPAP AT THIS TIME
--- NOTE | 2018-08-13 04:43 | NUR ---
PATIENT AGRRED TO PUT BIPAP ON AT THIS TIME. RT MADE AWARE.
--- NOTE | 2018-08-13 06:35 | NUR ---
BIPAP OFF PER PATIENT REQUEST. PT. PLACED ON OPTIFLOW FIO2 100% FLOW 60 LPM.
[2018-08-13 06:49] LABS: POTASSIUM 3.9 mmol/L (3.5-5.1)
[2018-08-13 06:56] LABS: ALBUMIN 1.8 gm/dl (3.1-4.5); CREATININE 1.38 mg/dL (0.55-1.02)
[2018-08-13 07:05] LABS: INTERNATIONAL NORM RATIO 7.3 (2.0-3.5)
--- NOTE | 2018-08-13 07:25 | NUR ---
AWARE OF INR OF 7.3. STATED OK
[2018-08-13 08:00] VITALS: BP 110/38
--- NOTE | 2018-08-13 09:00 | NUR ---
Power Lineworker in to see patient. She states she is waiting on a bed at [facility].
[2018-08-13 12:00] VITALS: BP 108/45
[2018-08-13 16:00] VITALS: BP 108/46
--- NOTE | 2018-08-13 19:15 | NUR ---
BEDSIDE REPORT OBTAINED FROM JARVIS. PATIENT IS RESTING IN BED QUIETLY, EYES CLOSED. NO DISTRESS NOTED, RESP ARE ERND ON OPTIFLO 100% 60L, P.OX SATS 86-88%. BED IS LOCKED IN LOWEST POSITION, ALARM MAINTAINED. FAMILY AT BEDSIDE, PRIVACY GIVEN AT THIS TIME. CALL LIGHT LEFT WITHIN REACH.
[2018-08-13 20:00] VITALS: BP 103/41
--- NOTE | 2018-08-13 20:00 | NUR ---
PATIENT VOICES NO COMPLAINTS, SITTING UP IN BED. OPTIFLO 100% 60L INTACT. FAMILY AT BEDSIDE. CALL LIGHT WITHIN REACH
--- NOTE | 2018-08-13 21:00 | NUR ---
PATIENT IS AUTHORIZED TO STAY THE NIGHT PER NURSING WIRE PREPARATION WORKER. SECURITY AWARE.
--- NOTE | 2018-08-13 23:37 | NUR ---
INFORMED THAT PATIENT IS COMPLAINING OF GENERALIZED PAIN / AND IS REQUESTING PAIN MEDICATION. NO ORDERS AVAILABLE. STATED HE WILL PLACE SOME ORDERS.
--- NOTE | 2018-08-13 23:48 | NUR ---
PATIENT MEDICATED WITH MORPHINE FOR GENERALIZED PAIN 10/10. WILL MONITOR
[2018-08-14] VITALS: BP 102/36
--- NOTE | 2018-08-14 00:48 | NUR ---
MORPHINE APPEARS EFFECTIVE. PATIENT NOT HAS AGGITATED AND MORE RELAXED. CALL LIGHT WITHIN REACH. FAMILY AT BEDSIDE
[2018-08-14 06:07] LABS: CREATININE 1.36 mg/dL (0.55-1.02); POTASSIUM 4.1 mmol/L (3.5-5.1)
[2018-08-14 06:52] LABS: BASO # 0.1 10*3/uL (0.0-0.1); BASO % 0.5 % (0.0-1.0); EOS # 0.5 10*3/uL (0.0-0.4); HEMATOCRIT 36.7 % (37.0-47.0); HEMOGLOBIN 12.6 g/dl (12.0-16.0); LYMPH # 0.8 10*3/uL (1.3-4.4); LYMPH % 4.8 % (27.0-41.0); MEAN CELL VOLUME 97.1 fl (81.0-99.0); MEAN CORPUSCULAR HGB 33.3 pg (27.0-31.0); MEAN CORPUSCULAR HGB CONC 34.3 g/dl (33.0-37.0); MEAN PLATELET VOLUME 11.3 fl (9.6-12.3); MONO # 1.1 10*3/uL (0.1-1.0); MONO % 6.3 % (3.0-9.0); NEUT # 14.7 10*3/uL (2.3-7.9); NEUT % 84.8 % (47.0-73.0); NUCLEATED RED BLOOD CELL 0.1 % (0.0-0.0); RED BLOOD COUNT 3.78 10*6/uL (4.10-5.10); RED CELL DISTRI WIDTH 16.3 % (0-14.5); WHITE BLOOD COUNT 17.4 10*3/uL (4.8-10.8)
--- NOTE | 2018-08-14 06:55 | NUR ---
MADE AWARE OF CH PT/INR OF >90 & >9.3. STATED OK.
[2018-08-14 06:58] LABS: INTERNATIONAL NORM RATIO > 9.3 (2.0-3.5)
[2018-08-14 07:04] LABS: PLATELET COUNT AUTOMATED 139 10*3/uL (130-400)
[2018-08-14 08:00] VITALS: BP 103/48
--- NOTE | 2018-08-14 08:00 | NUR ---
PATIENT REFUSING BIPAP. DR.JOSEPH BOOTH.
--- NOTE | 2018-08-14 10:20 | NUR ---
IN TO SEE PATIENT REGARDING PLAN OF CARE. SON AT BEDSIDE. SON HAD LENGTHY DISCUSSION WITH .
--- NOTE | 2018-08-14 10:57 | NUR ---
FAMILY AT BEDSIDE. NO VOICED COMPLAINTS. CONT PULSE OX MAINTAINED. PT DENIES ANY PAIN/DISCOMFORT CURRENTLY. WILL CONTINUE TO MONITOR.
--- NOTE | 2018-08-14 11:35 | NUR ---
PT MEDICATED WITH IV MORPHINE PER PRN ORDER FOR C/O GENERALIZED PAIN/DISCOMFORT. UNABLE TO RATE PAIN ON 1/10 SCALE. WILL MONITOR EFFECTIVENESS.
[2018-08-14 12:00] VITALS: BP 108/42
--- NOTE | 2018-08-14 12:00 | NUR ---
MORPHINE EFFECTIVE PER PT. PT RESTING COMFORTABLY AT THIS TIME.
--- NOTE | 2018-08-14 13:12 | NUR ---
[facility] CALLED AT THIS TIME REGARDING CONSULT.
--- NOTE | 2018-08-14 13:30 | NUR ---
NURSE FROM [facility] IN TO SEE PATIENT AND FAMILY.
--- NOTE | 2018-08-14 16:03 | NUR ---
PATIENT DISCHARGED TO INPATIENT HOSPICE. HOSPICE NURSE FATMATA HERE TO SEE THE PATIENT AND FAMILY.
== END 2018-08-14 16:03 | disposition hospice, home (50) | DRG 871 ==
LOC: ED 16:31 → EDHOLD 18:20 → 5E 18:20 → 4E 18:20 → ICCU 18:20 → 5E 20:01 → ICCU 08-02 13:16 → 4E 08-04 17:52
PROVIDERS: Family Medicine; Internal Medicine; Internal Medicine Critical Care Medicine; Physician Assistant; Registered Nurse; Student in an Organized Health Care Education/Training Program; ADMIT Internal Medicine
PROC: 5A09357 Assistance with Respiratory Ventilation, Less than 24 Consecutive Hours, Continuous Positive Airway Pressure (ICD-10-PCS; principal; 2018-08-02)
PROC: 5A09357 Assistance with Respiratory Ventilation, Less than 24 Consecutive Hours, Continuous Positive Airway Pressure (ICD-10-PCS; 2018-08-05)
PROC: 0W9G3ZZ Drainage of Peritoneal Cavity, Percutaneous Approach (ICD-10-PCS; 2018-08-06)
PROC: 5A09357 Assistance with Respiratory Ventilation, Less than 24 Consecutive Hours, Continuous Positive Airway Pressure (ICD-10-PCS; 2018-08-06)
PROC: 5A09357 Assistance with Respiratory Ventilation, Less than 24 Consecutive Hours, Continuous Positive Airway Pressure (ICD-10-PCS; 2018-08-07)
PROC: 5A09357 Assistance with Respiratory Ventilation, Less than 24 Consecutive Hours, Continuous Positive Airway Pressure (ICD-10-PCS; 2018-08-09)
PROC: 5A09357 Assistance with Respiratory Ventilation, Less than 24 Consecutive Hours, Continuous Positive Airway Pressure (ICD-10-PCS; 2018-08-10)
PROC: 5A09357 Assistance with Respiratory Ventilation, Less than 24 Consecutive Hours, Continuous Positive Airway Pressure (ICD-10-PCS; 2018-08-13)
DX: A41.9 Sepsis, unspecified organism (principal); E43 Unspecified severe protein-calorie malnutrition; J18.9 Pneumonia, unspecified organism; J96.01 Acute respiratory failure with hypoxia; G93.41 Metabolic encephalopathy; N17.0 Acute kidney failure with tubular necrosis; I21.A1 Myocardial infarction type 2; K50.919 Crohn's disease, unspecified, with unspecified complications; E87.3 Alkalosis; E87.2 Acidosis; D68.59 Other primary thrombophilia; R18.8 Other ascites; K76.6 Portal hypertension; D68.9 Coagulation defect, unspecified; K72.90 Hepatic failure, unspecified without coma; E87.6 Hypokalemia; K52.9 Noninfective gastroenteritis and colitis, unspecified; D69.6 Thrombocytopenia, unspecified; E87.8 Other disorders of electrolyte and fluid balance, not elsewhere classified; R73.9 Hyperglycemia, unspecified; E80.6 Other disorders of bilirubin metabolism; R65.20 Severe sepsis without septic shock; D53.9 Nutritional anemia, unspecified; I95.9 Hypotension, unspecified; E55.9 Vitamin D deficiency, unspecified; R74.0 Nonspecific elevation of levels of transaminase and lactic acid dehydrogenase [LDH]; Z66 Do not resuscitate; Z51.5 Encounter for palliative care; R31.9 Hematuria, unspecified; I50.9 Heart failure, unspecified; K74.60 Unspecified cirrhosis of liver; I27.20 Pulmonary hypertension, unspecified; Z90.49 Acquired absence of other specified parts of digestive tract; Z68.23 Body mass index [BMI] 23.0-23.9, adult; Z80.1 Family history of malignant neoplasm of trachea, bronchus and lung; Z79.899 Other long term (current) drug therapy; Z87.19 Personal history of other diseases of the digestive system